=== PATIENT | male | born 1965 | race Caucasian/White ===

== ENCOUNTER 2016-08-27 19:33 | Emergency (ER) | payer OTHER ==
[2016-08-27 19:53] VITALS: BP 129/87; PULSE 64; TEMP 97.9; BMI 24.7
[2016-08-27] MEDS ORDERED: METOCLOPRAMIDE HCL INJECTION 10 MG/2 ML VIAL IVPB ONE (20:00)
[2016-08-27] MEDS ORDERED: SODIUM CHLORIDE 1,000 ML IV STA (20:00)
[2016-08-27] MEDS ORDERED: methylPREDNISolone NA SUCC 125 MG/2 ML VIAL IVPB ONE (20:00)
--- NOTE | 2016-08-27 20:12 | PDOC ---
History of Present Illness - General Chief Complaint: Headache Stated Complaint: HEADACHE Time Seen by Provider: 08/27/16 19:52 History Source: Patient Exam Limitations: No Limitations - History of Present Illness Initial Comments: 08/27/16 20:02 51yo Male patient w/ PmHx: Chronic Back Pain (10/2014) presents to ED c/o Headache x 3 days with pressure. Patient is currently taking Gabapentin, Naproxen, and Flexeril with minimal relief. Patient states he usually gets h/a but this h/a is a little worse. Associated nausea. Denies any other complaints at this time. Timing/Duration: reports: other (3 days) Severity: Yes: moderate Episode Description: See HPI Associated Symptoms: reports: nausea/vomiting. denies: denies symptoms, confusion, fatigue, fever/chills, insomnia, loss of consciousness, muscle spasms , numbness in legs/feet, paresthesia, ringing in ears, seizures, sleepy, slurred speech, tingling in legs/feet, trouble walking, vision changes, weakness , other Past History - Travel Traveled outside of the country in the last 30 days: No Close contact w/someone who was outside of country & ill: No - Past Medical History Allergies/Adverse Reactions: Allergies Allergy/AdvReac Type Severity Reaction Status Date / Time No Known Allergies Allergy Verified 08/27/16 19:41 Home Medications: Ambulatory Orders Cyclobenzaprine HCl 20 mg PO DAILY 08/27/16 Gabapentin [Gralise] 600 mg PO HS 08/27/16 Naproxen Sodium [Naproxen Sodium ER] 500 mg PO BID 08/27/16 Suicide Attempt (Hx): No Other medical history: chronic lower back pain - Immunization History Immunization Up to Date: No - Psycho/Social/Smoking Cessation Hx Anxiety: No Suicidal Ideation: No Smoking Status: No Smoking History: Current every day smoker Number of Cigarettes Smoked Daily: 5 Information on smoking cessation initiated: No Hx Alcohol Use: No Drug/Substance Use Hx: No Substance Use Type: None Neuro Specific PMHX - Complaint Specific PMHX Glaucoma: No Herniated Disk: Yes Laminectomy: No Migraine: No Multiple Sclerosis: No Neuropathy: No TIA: No Review of Systems - Review of Systems Able to Perform ROS?: Yes Is the patient limited Chinese proficient: No Constitutional: No: Chills, Fever HEENTM: No: Blurred Vision, Double Vision Cardiac (ROS): No: Chest Pain, Lightheadedness, Palpitations, Syncope, Chest Tightness ABD/GI: Yes: Nausea. No: Constipated, Diarrhea, Poor Appetite, Poor Fluid Intake, Vomiting : No: Burning, Dysuria, Flank Pain, Hematuria Musculoskeletal: Yes: Back Pain (Chronic) Neurological: Yes: Headache All Other Systems: Reviewed and Negative *Physical Exam - Vital Signs Last Vital Signs Temp Pulse Resp BP Pulse Ox 97.9 F 64 18 129/87 99 08/27/16 19:38 08/27/16 19:38 08/27/16 19:38 08/27/16 19:38 08/27/16 19:38 - Physical Exam General Appearance: Yes: Nourished, Appropriately Dressed, Mild Distress. No: Apparent Distress, Moderate Distress, Severe Distress HEENT: positive: EOMI, SANJAY, Normal ENT Inspection, Normal Voice, Symmetrical, TMs Normal, Pharynx Normal. negative: Pharyngeal Erythema, Tonsillar Exudate, Tonsillar Erythema, Nasal Congestion, Rhinorrhea, TM Bulging, TM Dull, TM Erythema Neck: positive: Trachea midline, Normal Thyroid, Supple, Tender midline (Chronic ). negative: Rigid, Stridor, Lymphadenopathy (R), Lymphadenopathy (L), Tender lateral Respiratory/Chest: positive: Lungs Clear, Normal Breath Sounds. negative: Chest Tender, Respiratory Distress, Accessory Muscle Use, Labored Respiration, Rapid RR, Paradoxal Breathing, Stridor, Wheezing Cardiovascular: positive: Regular Rhythm, Regular Rate. negative: Edema Gastrointestinal/Abdominal: positive: Normal Bowel Sounds, Soft. negative: Distended, Guarding, Rebound, Tenderness, Hernia Musculoskeletal: positive: Normal Inspection. negative: CVA Tenderness, CVA Tenderness (R), CVA Tenderness (L) Extremity: positive: Normal Capillary Refill, Normal Inspection, Normal Range of Motion. negative: Pedal Edema, Swelling, Calf Tenderness, Erythema, Inflammation Integumentary: positive: Normal Color, Dry, Warm Neurologic: negative: boiler installer II-XII NML intact, Fully Oriented, Alert, Normal Mood/ Affect, Normal Response, Motor Strength 5/5 ED Treatment Course - LABORATORY CBC & Chemistry Diagram: 08/27/16 20:30 08/27/16 20:30 *DC/Admit/Observation/Transfer Diagnosis at time of Disposition: Headache Qualifiers: Headache type: tension-type Headache chronicity pattern: acute headache Intractability: not intractable Qualified Code(s): G44.209 - Tension-type headache, unspecified, not intractable - Discharge Dispostion Disposition: HOME Condition at time of disposition: Improved Admit: No - Patient Instructions Printed Discharge Instructions: DI for Headache Additional Instructions: FOLLOW UP WITH DR. GERBER. CALL TO SCHEDULE APPOINTMENT NEEDED. RETURN IF SYMPTOMS WORSEN OR ANY CONCERNS FOR FURTHER EVALUATION. Print Language: UKRAINIAN
[2016-08-27] MEDS ORDERED: METOCLOPRAMIDE HCL INJECTION 10 MG/2 ML VIAL ONE (20:17)
[2016-08-27] MEDS ORDERED: methylPREDNISolone NA SUCC 125 MG/2 ML VIAL ONE (20:18)
--- NOTE | 2016-08-27 20:34 | PDOC ---
*Physical Exam - Vital Signs Last Vital Signs Temp Pulse Resp BP Pulse Ox 97.9 F 64 18 129/87 99 08/27/16 19:38 08/27/16 19:38 08/27/16 19:38 08/27/16 19:38 08/27/16 19:38 ED Treatment Course - LABORATORY CBC & Chemistry Diagram: 08/27/16 20:30 08/27/16 20:30 Medical Decision Making - Medical Decision Making 08/27/16 20:34 agree with care from [facility] *DC/Admit/Observation/Transfer Diagnosis at time of Disposition: Headache - Discharge Dispostion Disposition: HOME Condition at time of disposition: Improved - Referrals Referrals: Venkata Gerber MD [Primary Care Provider] - - Patient Instructions Printed Discharge Instructions: DI for Headache Additional Instructions: FOLLOW UP WITH DR. GERBER. CALL TO SCHEDULE APPOINTMENT NEEDED. RETURN IF SYMPTOMS WORSEN OR ANY CONCERNS FOR FURTHER EVALUATION. Print Language: GERMAN
[2016-08-27 20:42] LABS: EOSINOPHIL 3.8 % (0-4.5); MCH 31.1 pg (25.7-33.7); MCHC 33.3 g/dl (32.0-35.9); MEAN CELL VOLUME 93.1 fl (80-96); MEAN PLT VOLUME 9.3 fl (7.5-11.1); NEUTROPHILS 58.6 % (42.8-82.8); PLATELET COUNT 170 K/MM3 (134-434); RDW 13.6 % (11.9-15.9); WHITE BLOOD COUNT 8.3 K/mm3 (4.0-10.0)
[2016-08-27 21:39] LABS: ALBUMIN 3.7 g/dl (3.4-5.0); ANION GAP 8 (8-16); CALCIUM 9.1 mg/dL (8.5-10.1); CO2 28 mmol/L (21-32); CREATININE 0.9 mg/dL (0.7-1.3); GLUCOSE,RANDOM 78 mg/dL (74-106); SGOT/AST 16 U/L (15-37); SGPT/ALT 21 U/L (12-78)
[2016-08-27 21:40] LABS: ALK PHOS 100 U/L (45-117); BILIRUBIN,TOTAL 0.5 mg/dL (0.2-1.0); TOT PROT 6.5 g/dl (6.4-8.2)
== END 2016-08-27 23:06 | disposition home or self-care (01) ==
LOC: JER 19:33
PROC: 3E0333Z Introduction of Anti-inflammatory into Peripheral Vein, Percutaneous Approach (ICD-10-PCS; principal; 2016-08-27)
PROC: 3E033GC Introduction of Other Therapeutic Substance into Peripheral Vein, Percutaneous Approach (ICD-10-PCS; 2016-08-27)
PROC: 3E033GC Introduction of Other Therapeutic Substance into Peripheral Vein, Percutaneous Approach (ICD-10-PCS; 2016-08-27)
DX: G44.209 Tension-type headache, unspecified, not intractable (principal); M54.5 Low back pain; G89.29 Other chronic pain
CPT/HCPCS: 80053; 85025; 99283-25

== ENCOUNTER 2017-10-16 22:04 | Emergency (ER) | payer OTHER ==
--- NOTE | 2017-10-16 22:22 | PDOC ---
History of Present Illness - General Stated Complaint: HEADACHE Time Seen by Provider: 10/16/17 22:22 History Source: Patient Exam Limitations: No Limitations - History of Present Illness Initial Comments: Pt, with PMH of spinal disc herniation s/p work accident (2014), presents with L -sided headache x3 days. The pt has been more stressed as he is trying to get his insurance coverage changed, and states the pain is associated with nausea and photophobia. The pain is throbbing and constant and runs from the frontal R side of his head to the occiput. He had an accident at work in 2014, and has been on Tylenol and Percocet for pain control; these have not received his headache. He denies fevers/chills, vomiting, vision changes, eye tearing, and diarrhea. 10/16/17 22:57 Past History - Past Medical History Allergies/Adverse Reactions: Allergies Allergy/AdvReac Type Severity Reaction Status Date / Time No Known Allergies Allergy Verified 10/16/17 22:50 Home Medications: Ambulatory Orders Cyclobenzaprine HCl 20 mg PO DAILY 08/27/16 Gabapentin [Gralise] 600 mg PO HS 08/27/16 Naproxen Sodium [Naproxen Sodium ER] 500 mg PO BID 08/27/16 Aspirin/Acetaminophen/Caffeine [Excedrin Migraine Caplet] 1 each PO ASDIR COPD: No - Immunization History Immunization Up to Date: No - Suicide/Smoking/Psychosocial Hx Smoking Status: No Smoking History: Current every day smoker Number of Cigarettes Smoked Daily: 10 'Breaking Loose' booklet given: 12/28/16 Hx Alcohol Use: No Drug/Substance Use Hx: No Substance Use Type: None Review of Systems - Review of Systems Able to Perform ROS?: Yes Is the patient limited Uzbek proficient: No Constitutional: Yes: Weight Stable. No: Chills, Diaphoresis, Fever, Loss of Appetite, Weakness HEENTM: No: Blurred Vision, Recent change in vision, Nose Congestion, Hearing Loss, Throat Swelling, Difficulty Swallowing Respiratory: No: Cough, Orthopnea, Shortness of Breath Cardiac (ROS): No: Chest Pain, Edema, Irregular Heart Rate, Lightheadedness, Palpitations, Syncope, Chest Tightness ABD/GI: Yes: Nausea. No: Abdominal Distended, Constipated, Diarrhea, Difficulty Swallowing, Poor Appetite, Poor Fluid Intake, Vomiting, Abdominal cramping : No: Burning, Dysuria, Frequency, Hematuria, Incontinence, Urgency Musculoskeletal: Yes: Back Pain (chronic, since work accident 2014. No acute changes.), Neck Pain (chronic, since work accident 2014. No acute changes.). No : Joint Pain, Joint Swelling, Muscle Pain, Muscle Weakness Integumentary: No: Bruising, Pruritus, Rash, Sweating Neurological: Yes: Headache, Pre-Existing Deficit (chronic decreased sensation in fingertips of L arm, and toes b/l (since accident 2014)). No: Numbness, Paresthesia, Tingling, Weakness, Unsteady Gait, Ataxia, Dizziness Psychiatric: No: Sleep Pattern Change, Change in Appetite Endocrine: No: Increased Urine, Change in Weight Hematologic/Lymphatic: No: Anemia, Blood Clots, Easy Bleeding All Other Systems: Reviewed and Negative *Physical Exam - Physical Exam General Appearance: Yes: Nourished, Appropriately Dressed. No: Apparent Distress (vitals stable, pt able to lie comfortably in bed. ) HEENT: positive: EOMI, SANJAY, Normal ENT Inspection, Normal Voice, Pharynx Normal , Hearing Grossly Normal. negative: Pale Conjunctivae, Scleral Icterus (R), Scleral Icterus (L), Muffled/Hoarse voice, Pharyngeal Erythema, Tonsillar Exudate, Tonsillar Erythema, Nasal Congestion, Rhinorrhea, Sinus Tenderness, Orbits, Hearing Decreased Neck: positive: Trachea midline, Normal Thyroid, Supple. negative: Tender, Rigid, Carotid bruit, Decreased range of motion, Lymphadenopathy (R), Lymphadenopathy (L), Rigidity Respiratory/Chest: positive: Lungs Clear, Normal Breath Sounds. negative: Chest Tender, Respiratory Distress, Accessory Muscle Use Cardiovascular: positive: Regular Rhythm, Regular Rate, S1, S2. negative: Edema , JVD, Murmur Vascular Pulses: Carotid (R): 4+, Carotid (L): 4+ Gastrointestinal/Abdominal: positive: Normal Bowel Sounds, Flat, Soft. negative : Tender, Organomegaly, Pulsatile Mass, Guarding, Rebound, Tenderness Rectal Exam: positive: deferred Lymphatic: negative: Adenopathy, Tenderness Musculoskeletal: positive: Normal Inspection. negative: CVA Tenderness Extremity: positive: Normal Capillary Refill, Normal Inspection, Normal Range of Motion, Pelvis Stable. negative: Tender Integumentary: positive: Normal Color, Dry, Warm. negative: Cyanotic, Jaundice , Clammy, Diaphoresis, Petechiae, Rash, Ecchymosis Neurologic: positive: Fully Oriented, Alert, Normal Mood/Affect, Normal Response , Motor Strength 5/5, Abnormal Cranial NS (decreased sensation over L forehead ( V1 area)), Numbness (decreased sensation to light touch over b/l dorsal feet and ulnar side of arms b/l -- both chronic for pt.), Finger to Nose (intact. cerebellar testing (heel-navarro) intact). negative: marketing communications manager II-XII NML intact, EOM Palsy, Facial Droop, Confused, Disoriented Medical Decision Making - Medical Decision Making Pt seen at bedside, also will be seen by Dr. De Leon. Pt has had L-sided headache x3 days, with nausea and photophobia. Pt has been more stressed as he is trying to get his insurance coverage changed. He had an accident at work in 2014, and has been on Tylenol and Percocet for pain control; these have not received his headache. No pain with neck flexion/extension. No recent travel or sick contacts , and is afebrile. Vitals stable. PE: decreased sensation to light touch over L forehead (V1) -- Likely migraine. Provided 10 mg IV reglan, 30 mg IV Toradol, and 1 L NS. Will reassess. 10/16/17 22:54 Pt has run out of percocet 3 days ago, and is normally prescribed by Dr. Thompson at [facility] (confirmed with prescription search). Will provide 4 mg IV morphine. Pt received medication and ~500 mL IVF. Will reassess after fluids complete. 10/17/17 00:28 (entered later) Pt stated pain significantly improved post-1L NS and medications. Pt will follow-up with PCP and Dr. Thompson (pain management). Strict return precautions provided with pt understanding. 10/17/17 01:46 *DC/Admit/Observation/Transfer Diagnosis at time of Disposition: Left-sided headache - Discharge Dispostion Disposition: HOME Condition at time of disposition: Improved Decision to Admit order: No - Referrals Referrals: Venkata Benjamin MD [Primary Care Provider] - David Thompson MD [Non Staff, Medical] - - Patient Instructions Printed Discharge Instructions: DI for Migraine Additional Instructions: You were seen in the ER today for headache. You were given fluids and medication (reglan, toradol, and morphine) to help with the pain. Please follow- up with your primary care doctor and your pain management doctor (Dr. Thompson) to discuss your visit and make sure your symptoms have improved. Please return to the ER if you have worsening headache, vision changes, loss of strength or sensation in your extremities, inability to tolerate food or fluids , or any other concerns. - Post Discharge Activity
--- NOTE | 2017-10-16 22:43 | PDOC ---
Attending Attestation - HPI HPI: 10/16/17 22:45 The patient is a 52 year old male, with a significant past medical history of multiple disc herniations s/p trauma in 2015, who presents to the emergency department with shooting pain to his left head with associated nausea and photophobia for 3 days. The patient denies chest pain, shortness of breath, and dizziness. The patient denies fever, chills, vomit, diarrhea and constipation. The patient denies dysuria, frequency, urgency and hematuria. Allergies: NKDA - Physicial Exam PE: 10/16/17 23:47 GENERAL: The patient is in no acute distress. HEAD: Normal with no signs of trauma. EYES: PERRLA, EOMI, sclera anicteric, conjunctiva clear. NECK: Normal range of motion, supple without lymphadenopathy, JVD, or masses. LUNGS: Breath sounds equal, clear to auscultation bilaterally. No wheezes, and no crackles. HEART:Regular rate and rhythm, normal S1 and S2 without murmur, rub or gallop. EXTREMITIES: Normal range of motion, no edema. No clubbing or cyanosis. No erythema, or tenderness. NEUROLOGICAL: Cranial nerves II through XII grossly intact. Normal speech. No focal neurological deficits. MUSCULOSKELETAL: Back non-tender to palpation, no CVA tenderness - Medical Decision Making 10/16/17 22:45 Documentation prepared by Alla Rodrigues, acting as director of graduate medical education for Kirsten De Leon MD <Alla Rodrigues - Last Filed: 10/16/17 23:47> - Resident Resident Name: Pamela Llanos - ED Attending Attestation I have performed the following: I have examined & evaluated the patient, The case was reviewed & discussed with the resident, I agree w/resident's findings & plan, Exceptions are as noted - Medical Decision Making Mr edouard is a 52 yo M with a history of chronic back and neck pain s/p injury at work. He is on chronic opioids, followed by pain management He presents to the ER with a complaint of an exacerbation of his chronic pain As it turns out, he has not taken his percocet for the past 3 days because he ran out iSto[employer] checked and pt was last prescribed a 14 day course of Percocet, almost 1 month ago Pt given Provided 10 mg IV reglan, Morpine, IV Upon re assessment, pt states that his pain has significantly improved. will discharge to home Pt will follow-up with PCP and Dr. Thompson (pain management). <Kirsten De Leon - Last Filed: 10/19/17 11:39>
[2017-10-16] MEDS ORDERED: SODIUM CHLORIDE 1,000 ML IV STA (22:51)
[2017-10-16] MEDS ORDERED: METOCLOPRAMIDE HCL INJECTION 10 MG/2 ML VIAL IVPUSH ONE (22:52)
[2017-10-16] MEDS ORDERED: KETOROLAC TROMETHAMINE 30 MG/1 ML VIAL IVPUSH ONE (22:52)
[2017-10-16 22:54] VITALS: BP 130/89; PULSE 56; TEMP 97.8; BMI 25.0
[2017-10-16] MEDS ORDERED: METOCLOPRAMIDE HCL INJECTION 10 MG/2 ML VIAL ONE (23:05)
[2017-10-16] MEDS ORDERED: KETOROLAC TROMETHAMINE 30 MG/1 ML VIAL ONE (23:05)
[2017-10-16] MEDS ORDERED: morphine CARPU-JECT 4 MG/1 ML DISP.SYRIN IVPUSH ONE (23:11)
[2017-10-16] MEDS ORDERED: morphine SULFATE 4 MG/ML VIAL ONE (23:16)
== END 2017-10-17 01:08 | disposition home or self-care (01) ==
LOC: JER 22:04
PROC: 3E0337Z Introduction of Electrolytic and Water Balance Substance into Peripheral Vein, Percutaneous Approach (ICD-10-PCS; principal; 2017-10-16)
PROC: 3E033NZ Introduction of Analgesics, Hypnotics, Sedatives into Peripheral Vein, Percutaneous Approach (ICD-10-PCS; 2017-10-16)
PROC: 3E0333Z Introduction of Anti-inflammatory into Peripheral Vein, Percutaneous Approach (ICD-10-PCS; 2017-10-16)
PROC: 3E033GC Introduction of Other Therapeutic Substance into Peripheral Vein, Percutaneous Approach (ICD-10-PCS; 2017-10-16)
DX: R51 Headache (principal); Z87.828 Personal history of other (healed) physical injury and trauma
CPT/HCPCS: 99281-25; J7030

== ENCOUNTER 2018-08-31 11:49 | Inpatient (IN) | payer OTHER ==
--- NOTE | 2018-08-31 12:44 | PDOC ---
History of Present Illness - General Chief Complaint: Chest Pain Stated Complaint: CHEST PAIN Time Seen by Provider: 08/31/18 12:18 History Source: Patient Exam Limitations: No Limitations - History of Present Illness Initial Comments: 08/31/18 12:41 53 yo male PMH of 30 pack year hx smoking (quit 2 weeks ago), spinal disc herniation s/p work accident (2014) presents to the ED with 5 days of bilateral limb swelling, 3 hours of sudden onset exertional CP with associated SOB. Pt states while walking around at home today he noted sudden onset CP described as pressure with radiation down the left arm and is intermittent. Exertion makes the pain worse and rest makes it better. Of note, pt saw PCP yesterday (Dr. Benjamin) and told he has high cholesterol, pt also pending results of bilateral US lower ext. Pt denies recent travel, calf tenderness, active SOB, abdominal pain, new back pain, recent illness, F/C/N/V, diaphoresis. Past History - Past Medical History Allergies/Adverse Reactions: Allergies Allergy/AdvReac Type Severity Reaction Status Date / Time No Known Allergies Allergy Verified 08/31/18 11:55 Home Medications: Ambulatory Orders Cyclobenzaprine HCl 20 mg PO DAILY 08/27/16 Gabapentin [Gralise] 600 mg PO HS 08/27/16 Naproxen Sodium [Naproxen Sodium ER] 500 mg PO BID 08/27/16 Aspirin/Acetaminophen/Caffeine [Excedrin Migraine Caplet] 1 each PO ASDIR COPD: No - Immunization History Immunization Up to Date: No - Suicide/Smoking/Psychosocial Hx Smoking Status: No Smoking History: Never smoked Have you smoked in the past 12 months: No Number of Cigarettes Smoked Daily: 10 Information on smoking cessation initiated: No 'Breaking Loose' booklet given: 12/28/16 Hx Alcohol Use: No Drug/Substance Use Hx: No Substance Use Type: None Review of Systems - Review of Systems Constitutional: No: Chills, Fever, Weakness HEENTM: No: Blurred Vision, Double Vision Respiratory: Yes: Shortness of Breath (resolved), SOB with Exertion. No: Wheezing, Productive cough Cardiac (ROS): Yes: Chest Pain (pressure) ABD/GI: No: Constipated, Diarrhea, Nausea, Vomiting, Abdominal cramping : No: Burning, Dysuria, Frequency, Hematuria Musculoskeletal: No: Back Pain Integumentary: No: Change in Color Neurological: No: Numbness, Paresthesia *Physical Exam - Vital Signs Last Vital Signs Temp Pulse Resp BP Pulse Ox 97.6 F 70 17 122/80 97 08/31/18 11:55 08/31/18 11:55 08/31/18 11:55 08/31/18 11:55 08/31/18 11:55 - Physical Exam General Appearance: Yes: Nourished, Appropriately Dressed. No: Apparent Distress HEENT: positive: EOMI Neck: positive: Supple. negative: Carotid bruit Respiratory/Chest: positive: Lungs Clear, Normal Breath Sounds. negative: Rapid RR, Crackles, Rales, Rhonchi, Wheezing Cardiovascular: positive: Regular Rhythm, Regular Rate, S1, S2. negative: Edema , JVD, Murmur Vascular Pulses: Dorsalis-Pedis (R): 4+, Doralis-Pedis (L): 4+ Gastrointestinal/Abdominal: positive: Flat, Soft. negative: Rebound ED Treatment Course - LABORATORY CBC & Chemistry Diagram: 08/31/18 12:36 08/31/18 12:36 - RADIOLOGY Radiology Studies Ordered: Category Date Time Status CHEST X-RAY PORTABLE* [RAD] Stat Radiology 08/31/18 12:37 Ordered Medical Decision Making - Medical Decision Making 08/31/18 15:21 53 yo male PMH of 30 pack year hx smoking (quit 2 weeks ago), spinal disc herniation s/p work accident (2014) presents to the ED with 5 days of bilateral limb swelling, 3 hours of sudden onset exertional CP with associated SOB. Pt states while walking around at home today he noted sudden onset CP described as pressure with radiation down the left arm and is intermittent. Exertion makes the pain worse and rest makes it better. Of note, pt saw PCP yesterday (Dr. Benjamin) and told he has high cholesterol, pt also pending results of bilateral US lower ext. Pt denies recent travel, calf tenderness, active SOB, abdominal pain, new back pain, recent illness, F/C/N/V, diaphoresis. Vitals WNL EKG NSR no ST changes DDX INLT: ACS, PE, PNA, Pneumo, MSK Due to severity of story and risk factors, 325 mg ASA given and likely admission for ACS r/o 1st trop neg, pending second trop Bedside US as per Dr. Perez appears normal Case discussed with Dr. Benjamin, agrees to have pt admitted to tele obs D dimer positive, will CTA chest for PE r/o and Will call PCP Cassidy back with results of CTA and discuss HLD treatment 08/31/18 16:30 DVT study issues with sending images, requesting pt return for rescan however pt had CTA of chest, DVT study non emergent and can do as inpatient if needed Case presented to [facility] pt accepted for admission *DC/Admit/Observation/Transfer Diagnosis at time of Disposition: Chest pain - Discharge Dispostion Condition at time of disposition: Stable Decision to Admit order: Yes - Referrals - Patient Instructions - Post Discharge Activity
[2018-08-31] MEDS ORDERED: ASPIRIN 325 MG TABLET PO ONE (12:46)
[2018-08-31] MEDS ORDERED: ASPIRIN 325 MG ENTERIC COATED TABLET (FP) ONE (13:01)
[2018-08-31 13:09] LABS: EOS % 7.6 % (0-4.5); HEMATOCRIT 43.4 % (35.4-49); HEMOGLOBIN 14.7 GM/dL (11.7-16.9); LYMPH % 24.7 % (8-40); MCH 30.6 pg (25.7-33.7); MCHC 33.8 g/dl (32.0-35.9); MEAN CELL VOLUME 90.4 fl (80-96); MEAN PLT VOLUME 8.2 fl (7.5-11.1); MONO % 10.6 % (3.8-10.2); NEUT % 56.1 % (42.8-82.8); PLATELET COUNT 202 K/MM3 (134-434); RDW 13.4 % (11.9-15.9); WHITE BLOOD COUNT 6.3 K/mm3 (4.0-10.0)
--- NOTE | 2018-08-31 13:20 | PDOC ---
Documentation entered by Adriano Dukes SCRIBE, acting as scribe for Ajith Vargas MD. Ajith Vargas MD: This documentation has been prepared by the Ernst munoz Collisia, SCRIBE, under my direction and personally reviewed by me in its entirety. I confirm that the documentation accurately reflects all work, treatment, procedures, and medical decision making performed by me. Attending Attestation - Resident Resident Name: Kartik Quinteros - ED Attending Attestation I have performed the following: I have examined & evaluated the patient, The case was reviewed & discussed with the resident, I agree w/resident's findings & plan - HPI HPI: 08/31/18 13:15 53-year-old male with relatively healthy just had his routine primary care appointment with Dr. Benjamin including an echo, was diagnosed with mild hypercholesterolemia, also had lower extremity Doppler for 1 week of bilateral ( right greater than left) leg swelling presents now with episode of chest pain this morning. Patient was otherwise in his usual state of good health, after showering this morning developed pretty sudden left chest pressure that radiated to his neck and his arm, associated with some shortness of breath but no palpitations or nausea or near syncope. Severity of the symptoms improved but they are persistent with mild severity at this time, presents for evaluation. At baseline, has no exercise limitations, he is on permanent disability from a low back injury but is otherwise active with activities of daily living. No recent procedures or travel, no family history of DVT or PE, mom had HI in her 40s. - Physicial Exam PE: 08/31/18 13:17 Vital signs are normal Patient is well-appearing and comfortable Heart is regular without murmur Lungs are clear, question slight crackles at the left base One plus edema on the right, trace on the left. No calf tenderness Neurovascular intact distally - Medical Decision Making 08/31/18 13:17 53-year-old male presents with 1 week of right greater than left leg swelling and now sudden onset chest pain this morning, presents here hemodynamically stable with normal EKG. Question PE, rule out ACS, less likely infectious. Labs, urinalysis EKG, chest x-ray obtain outpt doppler results, check ddimer will need admission for trop trending/stress test evaluation 08/31/18 15:49 trop negative, ddimer positive. cta chest ordered, admitted to Dr. Benjamin Heart Score/ECG Review #1 ECG reviewed & interpreted by me at: 11:57 General ECG Interpretation: Sinus Rhythm, Normal Rate (62), Normal Intervals ( qtc 412), No acute ischemic changes
[2018-08-31 13:23] LABS: INR 0.91 (0.83-1.09); PROTHROMBIN TIME (PATIENT) 10.7 SEC (9.7-13.0)
[2018-08-31 13:26] LABS: ACTIVATED PTT 27.6 SECONDS (25.2-36.5)
[2018-08-31 13:37] LABS: ALBUMIN 3.5 g/dl (3.4-5.0); ALK PHOS 105 U/L (45-117); ANION GAP 6 MMOL/L (8-16); BILIRUBIN,TOTAL 0.4 mg/dL (0.2-1); BLOOD UREA NITROGEN 14.4 mg/dL (7-18); CALCIUM 8.7 mg/dL (8.5-10.1); CHLORIDE 108 mmol/L (98-107); CO2 29 mmol/L (21-32); CREATININE 1.1 mg/dL (0.55-1.3); GLUCOSE,RANDOM 94 mg/dL (74-106); N-TERMINAL BNP 52.3 pg/ml (5-125); POTASSIUM 4.3 mmol/L (3.5-5.1); SGOT/AST 42 U/L (15-37); SGPT/ALT 88 U/L (13-61); SODIUM 143 mmol/L (136-145); TOT PROT 6.2 g/dl (6.4-8.2)
--- NOTE | 2018-08-31 14:33 | EKG ---
Test Reason : Blood Pressure : / mmHG Vent. Rate : 062 BPM Atrial Rate : 062 BPM P-R Int : 184 ms QRS Dur : 104 ms QT Int : 406 ms P-R-T Axes : 037 014 019 degrees QTc Int : 412 ms NORMAL SINUS RHYTHM NORMAL ECG WHEN COMPARED WITH ECG OF 14-JAN-2010 14:21, NO SIGNIFICANT CHANGE WAS FOUND Confirmed by Omari Ibrahim ([id number]) on 08/31/2018 2:32:39 PM Referred By: Confirmed By:Omari Ibrahim
--- NOTE | 2018-08-31 16:44 | HP ---
Admitting History and Physical - Primary Care Physician PCP: Venkata Benjamin - Admission Chief Complaint: Chest Pain History of Present Illness: Patient is a 53 y/o male with past medical history spinal disc herniation. Patient presented to ER with complaints of chest pain which began at 9:30 this morning. Chest pain was accompanied with dizziness, occipital headache, left arm numbness, SOB. Patient denies any exertion or injury when chest pain started. He also states that he has been having bilateral lower extremity edema for 5 days. He saw his PCP yesterday and had US done of b/l lower extremity. in ER labs significant for elevated D-Dimer 557, chest CTA done with results pending. Troponin neg x 1. History Source: Patient Limitations to Obtaining History: No Limitations - Smoking History Smoking history: Former smoker Have you smoked in the past 12 months: No Aproximately how many cigarettes per day: 10 - Alcohol/Substance Use Hx Alcohol Use: No - Social History ADL: Independent Home Medications - Allergies Allergies/Adverse Reactions: Allergies Allergy/AdvReac Type Severity Reaction Status Date / Time No Known Allergies Allergy Verified 08/31/18 11:55 - Home Medications Home Medications: Ambulatory Orders Cyclobenzaprine HCl 20 mg PO DAILY 08/27/16 Gabapentin [Gralise] 600 mg PO HS 08/27/16 Naproxen Sodium [Naproxen Sodium ER] 500 mg PO BID 08/27/16 Aspirin/Acetaminophen/Caffeine [Excedrin Migraine Caplet] 1 each PO ASDIR Review of Systems - Review of Systems Constitutional: reports: No Symptoms Eyes: reports: No Symptoms HENT: reports: No Symptoms Neck: reports: No Symptoms Cardiovascular: reports: Chest Pain, Shortness of Breath Respiratory: reports: SOB Gastrointestinal: reports: No Symptoms Genitourinary: reports: No Symptoms Breasts: reports: No Symptoms Reported Musculoskeletal: reports: Back Pain Integumentary: reports: No Symptoms Neurological: reports: Dizziness, Numbness (L arm) Endocrine: reports: No Symptoms Hematology/Lymphatic: reports: No Symptoms Psychiatric: reports: No Symptoms Physical Examination Vital Signs: Vital Signs Temperature 97.6 F 08/31/18 11:55 Pulse Rate 70 08/31/18 11:55 Respiratory Rate 17 08/31/18 11:55 Blood Pressure 122/80 08/31/18 11:55 O2 Sat by Pulse Oximetry (%) 97 08/31/18 11:55 Constitutional: Yes: Well Nourished, No Distress, Calm Eyes: Yes: Conjunctiva Clear HENT: Yes: Atraumatic Neck: Yes: Supple Cardiovascular: Yes: Regular Rate and Rhythm Respiratory: Yes: Regular, CTA Bilaterally Gastrointestinal: Yes: Normal Bowel Sounds, Soft Musculoskeletal: Yes: Muscle Weakness Extremities: Yes: WNL Edema: Yes Edema: LLE: Trace, RLE: 1+ Neurological: Yes: Alert, Oriented Psychiatric: Yes: Alert, Oriented Labs: CBC, BMP 08/31/18 12:36 08/31/18 12:36 Imaging - Results Chest X-ray: Report Reviewed EKG: Report Reviewed Problem List - Problems (1) Elevated d-dimer Assessment/Plan: -D-Dimer 557 -Chest CTA ordered, results pending -B/L lower extremity US Code(s): R79.89 - OTHER SPECIFIED ABNORMAL FINDINGS OF BLOOD CHEMISTRY (2) Chest pain Assessment/Plan: -EKG NSR -trop neg x 1, repeat trop pending -Tele monitoring -Cardiology consult -Aspirin daily -lipid panel ordered Code(s): R07.9 - CHEST PAIN, UNSPECIFIED (3) Dizziness Assessment/Plan: -Head CT scan Code(s): R42 - DIZZINESS AND GIDDINESS Assessment/Plan see problem list dvt ppx
[2018-08-31] MEDS ORDERED: ACETAMINOPHEN 325 MG TABLET (FP) PO ONE (17:58)
[2018-08-31] MEDS ORDERED: ACETAMINOPHEN 325 MG TABLET (FP) ONE (18:47)
[2018-08-31 21:47] VITALS: BMI 29.5
[2018-08-31] MEDS ORDERED: ACETAMINOPHEN 325 MG TABLET (FP) PO PRN (22:02)
[2018-08-31] MEDS: HEPARIN NA (PORCINE) 5,000 UNITS/ML 1ML VIAL SQ SCH (22:19)
[2018-09-01 08:25] LABS: BASO % 0.8 % (0-2.0); EOS % 9.6 % (0-4.5); HEMATOCRIT 42.3 % (35.4-49); HEMOGLOBIN 14.6 GM/dL (11.7-16.9); LYMPH % 26.3 % (8-40); MCHC 34.5 g/dl (32.0-35.9); MEAN CELL VOLUME 89.9 fl (80-96); MEAN PLT VOLUME 8.7 fl (7.5-11.1); MONO % 9.6 % (3.8-10.2); NEUT % 53.7 % (42.8-82.8); PLATELET COUNT 193 K/MM3 (134-434); RBC 4.71 M/mm3 (4.00-5.60); RDW 12.9 % (11.9-15.9); WHITE BLOOD COUNT 6.9 K/mm3 (4.0-10.0)
[2018-09-01 08:49] LABS: ALBUMIN 3.2 g/dl (3.4-5.0); ALK PHOS 84 U/L (45-117); ANION GAP 5 MMOL/L (8-16); BILIRUBIN,TOTAL 0.5 mg/dL (0.2-1); CALCIUM 8.2 mg/dL (8.5-10.1); CHLORIDE 108 mmol/L (98-107); CHOLESTEROL 181 mg/dL (50-200); CO2 29 mmol/L (21-32); GLUCOSE,RANDOM 92 mg/dL (74-106); HDL CHOLESTEROL 41 mg/dL (40-60); MAGNESIUM 2.3 mg/dL (1.8-2.4); POTASSIUM 4.1 mmol/L (3.5-5.1); SGOT/AST 51 U/L (15-37); SGPT/ALT 99 U/L (13-61); SODIUM 142 mmol/L (136-145); TOT PROT 5.6 g/dl (6.4-8.2); TRIGLYCERIDES 170 mg/dL (0-150)
[2018-09-01] MEDS: ASPIRIN COATED 81 MG TABLET.EC PO SCH (09:44)
[2018-09-01] MEDS: PANTOPRAZOLE 40 MG TABLET (FP) PO SCH (09:44)
[2018-09-01] MEDS: HEPARIN NA (PORCINE) 5,000 UNITS/ML 1ML VIAL SQ SCH ×2 (09:45→22:18)
--- NOTE | 2018-09-01 10:38 | PN ---
Progress Note, Physician Chief Complaint: Chest pain History of Present Illness: Echo done in our office on 08/20/18 showed normal LVEF at 60%, grade 1 diastolic dysfxn, mild mitral and tricuspid regurgitation, mildly dilated ascending aorta - Current Medication List Current Medications: Active Medications Acetaminophen (Tylenol -) 650 mg PO Q6H PRN PRN Reason: PAIN LEVEL 1-5 Aspirin (Ecotrin -) 81 mg PO DAILY [facility] Last Admin: 09/01/18 09:44 Dose: 81 mg Heparin Sodium (Porcine) (Heparin -) 5,000 unit SQ BID [facility] Last Admin: 09/01/18 09:45 Dose: 5,000 unit Pantoprazole Sodium (Protonix -) 40 mg PO DAILY [facility] Last Admin: 09/01/18 09:44 Dose: 40 mg - Objective Vital Signs: Vital Signs Temperature 97.4 F L 09/01/18 02:00 Pulse Rate 61 09/01/18 02:00 Respiratory Rate 20 09/01/18 07:00 Blood Pressure 114/77 09/01/18 02:00 O2 Sat by Pulse Oximetry (%) 97 09/01/18 07:00 Constitutional: Yes: Well Nourished, No Distress, Calm Cardiovascular: Yes: Regular Rate and Rhythm Respiratory: Yes: Regular Gastrointestinal: Yes: Normal Bowel Sounds, Soft, Abdomen, Obese Genitourinary: Yes: WNL Musculoskeletal: Yes: WNL Extremities: Yes: WNL Edema: No Peripheral Pulses WNL: Yes Neurological: Yes: Alert, Oriented Psychiatric: Yes: Alert, Oriented Labs: CBC, BMP 09/01/18 06:16 09/01/18 06:16 INR, PTT INR 0.91 (0.83-1.09) 08/31/18 12:36 Problem List - Problems (1) Chest pain Assessment/Plan: -resolved -Cardiology consult -Tele monitor -trops x 3 negative -Stress test on cardiology discretion Code(s): R07.9 - CHEST PAIN, UNSPECIFIED (2) Dizziness Assessment/Plan: -resolved Code(s): R42 - DIZZINESS AND GIDDINESS Assessment/Plan see problem list
--- NOTE | 2018-09-01 13:10 | PN ---
Progress Note (short form) - Note Progress Note: PULMONARY CONSULTATION DICTATED 09/01/18 IMP CHEST PAIN SYNDROME R/O ACS H/O SMOKING QUIT 3 WKS AGO HLD PLAN CARDIOLOGY EVALUATION PFTS OUTPATIENT YEARLY LOW DOSE CHEST CT FOR LUNG CANCER SCREENING DR ROSE Problem List - Problems (1) Dyspnea Code(s): R06.00 - DYSPNEA, UNSPECIFIED (2) Chest pain Code(s): R07.9 - CHEST PAIN, UNSPECIFIED (3) Elevated d-dimer Code(s): R79.89 - OTHER SPECIFIED ABNORMAL FINDINGS OF BLOOD CHEMISTRY
--- NOTE | 2018-09-01 14:29 | CONS ---
DATE OF CONSULTATION: 09/01/2018 PULMONARY CONSULTATION REFERRING PHYSICIAN: Venkata Benjamin MD HISTORY OF PRESENT ILLNESS: The patient is a 53-year-old male with a past medical history of spinal disk herniation status post a work accident, hyperlipidemia, longstanding history of tobacco use approximately 1 pack per day for 30 years, quit 2 weeks ago, admitted to [facility] with complaint of sudden onset of exertional chest pain associated with shortness of breath. Patient describes his chest pain as pressure like radiating to the left arm. He denied any nausea, vomiting or diaphoresis. Also complained of shortness of breath associated with this. Pain lasted approximately 3 hours and resolved suddenly. The patient states that the pain is worse when he exerts himself and improves when resting. Apparently he has also been complaining of a 5-day history of bilateral lower extremity swelling. He underwent a duplex lower extremity which was within normal limits. He apparently saw his PCP the day prior to admission and told he had high cholesterol. PAST MEDICAL HISTORY: Again is hypercholesterolemia, history of spinal disk herniation status post work accident. SOCIAL HISTORY: Born in [facility], moved to the [facility] greater than 30 years ago. No occupational exposures. Positive for a history of tobacco use, 1 pack a day for greater than 30 years, quit 2 weeks ago. REVIEW Of SYSTEMS: No orthopnea, no cough, no hemoptysis. Currently no chest pain. No nausea, no vomiting, no hemoptysis, no abdominal pain. CURRENT MEDICATIONS: Include Tylenol, heparin, Ecotrin and Protonix. PHYSICAL EXAMINATION:General: The patient is a well-developed, well-nourished male, currently awake, alert, in no acute distress. Vital Signs: He is currently afebrile, blood pressure 112/76, respiratory rate is 18, O2 saturation is 97% on room air. HEENT: Normocephalic, atraumatic. Neck: Supple. Heart: Irregular, S1, S2. Chest: A few wheezes noted predominantly on the left side. Abdomen: Soft. Bowel sounds are positive. Extremities: There is trace lower extremity edema. LABORATORIES: D-dimer is 557. Chemistries: BUN is 16, creatinine 1.0, triglycerides are 170, cholesterol 181. WBC is 6.9, hemoglobin 14.6, hematocrit 42.3 with a platelet count of 193,000. Chest CTA: No infiltrates and no effusion. No evidence of pulmonary emboli. CT of the head revealed partially opacified right frontal sinus, left frontal sinus osteoma with opacification of the left frontal sinus, bilateral ethmoid sinus disease, right nasal polyp, no evidence of acute intracranial hemorrhage, edema, or midline shift or mass effect. IMPRESSION: 1. Chest pain syndrome, dyspnea, rule out acute coronary syndrome. 2. History of smoking, quit 3 weeks ago. 3. Hyperlipidemia. 4. Hypercholesterolemia. PLAN: Cardiology evaluation. PFT as an outpatient. Will need yearly low-dose chest CT for lung cancer screening. Thank you. SULTANA ROSE M.D. [id number] MTDD
--- NOTE | 2018-09-01 14:31 | CON.CARD ---
Consult Consult Specialty:: Cardiology Reason for Consultation:: Chest pain - History of Present Illness History of Present Illness: 53 M smoker was admitted with recurrent chest pressure radiating to his arm lasting about 30 min until resolution. He has been CP free since admission and ECG/enzymes are normal. No arrhythmia on telem. - History Source History Provided By: Patient - Alcohol/Substance Use Hx Alcohol Use: No - Smoking History Smoking history: Former smoker Have you smoked in the past 12 months: Yes Aproximately how many cigarettes per day: 20 If you are a former smoker, when did you quit?: 08/16/18 - Social History ADL: Independent Home Medications - Allergies Allergies/Adverse Reactions: Allergies Allergy/AdvReac Type Severity Reaction Status Date / Time No Known Allergies Allergy Verified 08/31/18 11:55 - Home Medications Home Medications: Ambulatory Orders Meloxicam 7.5 mg PO DAILY 08/31/18 Pantoprazole Sodium [Protonix] 40 mg PO DAILY 08/31/18 Review of Systems - Review of Systems Constitutional: reports: No Symptoms Eyes: reports: No Symptoms HENT: reports: No Symptoms Neck: reports: No Symptoms Cardiovascular: reports: Chest Pain Respiratory: reports: No Symptoms Gastrointestinal: reports: No Symptoms Genitourinary: reports: No Symptoms Breasts: reports: No Symptoms Reported Musculoskeletal: reports: No Symptoms Vital Signs: Vital Signs Temperature 97.4 F L 09/01/18 02:00 Pulse Rate 56 L 09/01/18 10:00 Respiratory Rate 18 09/01/18 10:00 Blood Pressure 112/76 09/01/18 10:00 O2 Sat by Pulse Oximetry (%) 97 09/01/18 07:00 Constitutional: Yes: Well Nourished, No Distress Eyes: Yes: Conjunctiva Clear, EOM Intact HENT: Yes: Atraumatic, Normocephalic Neck: Yes: Supple, Trachea Midline Respiratory: Yes: Regular, CTA Bilaterally Gastrointestinal: Yes: Normal Bowel Sounds, Soft Cardiovascular: Yes: Regular Rate and Rhythm JVD: No Carotid Bruit: No PMI: Non-Displaced Heart Sounds: Yes: S1, S2 Murmur: No: Systolic Murmur, Diastolic Murmur Musculoskeletal: Yes: WNL Extremities: Yes: WNL Edema: No - Other Data Labs, Other Data: CBC, BMP 09/01/18 06:16 09/01/18 06:16 INR, PTT INR 0.91 (0.83-1.09) 08/31/18 12:36 Troponin, BNP 08/31/18 09/01/18 19:00 06:16 Troponin I < 0.02 < 0.02 Troponin, BNP 08/31/18 09/01/18 19:00 06:16 Troponin I < 0.02 < 0.[address] T changes. Echo: Report Reviewed (recent Out patient echo was normal.) Problem List - Problems (1) Chest pain Code(s): R07.9 - CHEST PAIN, UNSPECIFIED Assessment/Plan Typical CP. JULIETA negative ECG normal. Exercise nuclear stress test will be scheduled. If negative stress can be DCed.
[2018-09-02] MEDS: HEPARIN NA (PORCINE) 5,000 UNITS/ML 1ML VIAL SQ SCH (09:07)
[2018-09-02] MEDS: ASPIRIN COATED 81 MG TABLET.EC PO SCH (09:07)
[2018-09-02] MEDS: PANTOPRAZOLE 40 MG TABLET (FP) PO SCH (09:07)
--- NOTE | 2018-09-02 11:57 | PN ---
Progress Note, Physician Chief Complaint: Chest pain History of Present Illness: Echo done in our office on 08/20/18 showed normal LVEF at 60%, grade 1 diastolic dysfxn, mild mitral and tricuspid regurgitation, mildly dilated ascending aorta at stress test Seen by cardiology - Current Medication List Current Medications: Active Medications Acetaminophen (Tylenol -) 650 mg PO Q6H PRN PRN Reason: PAIN LEVEL 1-5 Aspirin (Ecotrin -) 81 mg PO DAILY [facility] Last Admin: 09/02/18 09:07 Dose: Not Given Heparin Sodium (Porcine) (Heparin -) 5,000 unit SQ BID [facility] Last Admin: 09/02/18 09:07 Dose: Not Given Pantoprazole Sodium (Protonix -) 40 mg PO DAILY [facility] Last Admin: 09/02/18 09:07 Dose: Not Given - Objective Vital Signs: Vital Signs Temperature 97.7 F 09/02/18 05:00 Pulse Rate 56 L 09/02/18 05:00 Respiratory Rate 20 09/02/18 09:00 Blood Pressure 114/68 09/02/18 05:00 O2 Sat by Pulse Oximetry (%) 97 09/02/18 09:00 Constitutional: Yes: Well Nourished, No Distress, Calm Cardiovascular: Yes: Regular Rate and Rhythm Respiratory: Yes: Regular Gastrointestinal: Yes: WNL, Normal Bowel Sounds, Soft, Abdomen, Obese Genitourinary: Yes: WNL Musculoskeletal: Yes: WNL Extremities: Yes: WNL Edema: No Peripheral Pulses WNL: Yes Neurological: Yes: Alert, Oriented Psychiatric: Yes: Alert, Oriented Labs: CBC, BMP 09/01/18 06:16 09/01/18 06:16 INR, PTT INR 0.91 (0.83-1.09) 08/31/18 12:36 Problem List - Problems (1) Chest pain Assessment/Plan: -resolved -Cardiology consult -Tele monitor -trops x 3 negative -Stress test today-if negative, would discharge home Code(s): R07.9 - CHEST PAIN, UNSPECIFIED (2) Dizziness Assessment/Plan: -resolved Code(s): R42 - DIZZINESS AND GIDDINESS Assessment/Plan see problem list
[2018-09-02] MEDS ORDERED: REGADENOSON 0.4 MG/5 ML PRE-FILLED SYRINGE IVPUSH ONE ×2 (12:46→13:00)
--- NOTE | 2018-09-02 13:25 | PN ---
Progress Note (short form) - Note Progress Note: Feels OK today. No CP or SOB. No acute events overnight. Intake & Output 08/30/18 08/31/18 09/01/18 09/02/18 23:59 23:59 23:59 23:59 Intake Total 10 540 Balance 10 540 Weight 236 lb 3.2 oz 233 lb 233 lb Last Vital Signs Temp Pulse Resp BP Pulse Ox 97.7 F 56 L 20 114/68 97 09/02/18 05:00 09/02/18 05:00 09/02/18 09:00 09/02/18 05:00 09/02/18 09:00 Active Medications Acetaminophen (Tylenol -) 650 mg PO Q6H PRN PRN Reason: PAIN LEVEL 1-5 Aspirin (Ecotrin -) 81 mg PO DAILY [facility] Last Admin: 09/02/18 09:07 Dose: Not Given Heparin Sodium (Porcine) (Heparin -) 5,000 unit SQ BID [facility] Last Admin: 09/02/18 09:07 Dose: Not Given Pantoprazole Sodium (Protonix -) 40 mg PO DAILY [facility] Last Admin: 09/02/18 09:07 Dose: Not Given Constitutional: Yes: Well Nourished, No Distress, Calm Cardiovascular: Yes: Regular Rate and Rhythm Respiratory: Yes: Regular Gastrointestinal: Yes: Normal Bowel Sounds, Soft, Abdomen, Obese Genitourinary: Yes: WNL Musculoskeletal: Yes: WNL Extremities: Yes: WNL Edema: No Peripheral Pulses WNL: Yes Neurological: Yes: Alert, Oriented Psychiatric: Yes: Alert, Oriented Labs: Problem List - Problems (1) Dyspnea Code(s): R06.00 - DYSPNEA, UNSPECIFIED (2) Chest pain Code(s): R07.9 - CHEST PAIN, UNSPECIFIED (3) Elevated d-dimer Code(s): R79.89 - OTHER SPECIFIED ABNORMAL FINDINGS OF BLOOD CHEMISTRY IMP CHEST PAIN SYNDROME R/O ACS H/O SMOKING QUIT 3 WKS AGO HLD PE Ruled out by CTA PLAN CARDIOLOGY WORKUP ONGOING PFTS OUTPATIENT NO SMOKING Dr Tom
--- NOTE | 2018-09-02 15:43 | PN ---
Progress Note, Physician Chief Complaint: No chest pain Tele NSR History of Present Illness: 53 M smoker was admitted with recurrent chest pressure radiating to his arm lasting about 30 min until resolution. He has been CP free since admission and ECG/enzymes are normal. No arrhythmia on telem. - Current Medication List Current Medications: Active Medications Acetaminophen (Tylenol -) 650 mg PO Q6H PRN PRN Reason: PAIN LEVEL 1-5 Aspirin (Ecotrin -) 81 mg PO DAILY [facility] Last Admin: 09/02/18 09:07 Dose: Not Given Heparin Sodium (Porcine) (Heparin -) 5,000 unit SQ BID [facility] Last Admin: 09/02/18 09:07 Dose: Not Given Pantoprazole Sodium (Protonix -) 40 mg PO DAILY [facility] Last Admin: 09/02/18 09:07 Dose: Not Given - Objective Vital Signs: Vital Signs Temperature 97.7 F 09/02/18 05:00 Pulse Rate 56 L 09/02/18 05:00 Respiratory Rate 20 09/02/18 09:00 Blood Pressure 114/68 09/02/18 05:00 O2 Sat by Pulse Oximetry (%) 97 09/02/18 09:00 Constitutional: Yes: Well Nourished, No Distress Eyes: Yes: Conjunctiva Clear HENT: Yes: Atraumatic, Normocephalic Neck: Yes: Trachea Midline Cardiovascular: Yes: Regular Rate and Rhythm Respiratory: Yes: Regular, CTA Bilaterally Gastrointestinal: Yes: Normal Bowel Sounds Labs: CBC, BMP 09/01/18 06:16 09/01/18 06:16 INR, PTT INR 0.91 (0.83-1.09) 08/31/18 12:36 Problem List - Problems (1) Chest pain Code(s): R07.9 - CHEST PAIN, UNSPECIFIED Assessment/Plan No further chest pain No dyspnea Negative stress test. No further cardiac testing is advised. Will see as needed.
[2018-09-02 21:00] VITALS: BP 131/83; PULSE 71; TEMP 98.1
== END 2018-09-02 21:04 | disposition home or self-care (01) | DRG 203 ==
LOC: JER 11:49 → JERBED 13:37 → OBSVTOIN 16:18 → J4W 20:14
PROVIDERS: ADMIT Family Medicine; ATTEND Family Medicine
DX: R07.9 Chest pain, unspecified (principal); E78.5 Hyperlipidemia, unspecified; R60.0 Localized edema; R42 Dizziness and giddiness; R79.89 Other specified abnormal findings of blood chemistry; Z87.891 Personal history of nicotine dependence
CPT/HCPCS: 36415; 70450-TC; 71045-TC-FY; 71275-TC; 78452-TC; 80053; 80061; 82550; 83721; 83735; 83880; 84436; 84443; 84484; 85025; 85379; 85610; 85730; 93005; 93010; 93017; 93970-TC; 99283-25; A9502; G0378; J1644; J2785

== ENCOUNTER 2018-10-27 14:02 | Emergency (ER) | payer OTHER ==
[2018-10-27 14:11] VITALS: BMI 29.9
[2018-10-27] MEDS ORDERED: SODIUM CHLORIDE 1,000 ML IV STA (14:33)
[2018-10-27] MEDS ORDERED: ONDANSETRON 4 MG/2 ML VIAL IVPUSH ONE (14:33)
[2018-10-27] MEDS ORDERED: KETOROLAC TROMETHAMINE 30 MG/1 ML VIAL IVPUSH ONE (14:33)
--- NOTE | 2018-10-27 14:33 | PDOC ---
History of Present Illness - History of Present Illness Initial Comments: Bernard Ochoa is a 53yo man with a PMH of chronic back pain and recent hematuria who presents with acute onset of left flank pain that radiates to the left abdomen. He reports associated vomiting today as well. The pain and nausea/ vomiting started acutely while in the car on the way to a urology appointment, where he was intended to undergo evaluation for hematuria for the past 2-3 weeks. Due to the onset of pain, they came to the ED instead. Mr Ochoa states that he had a previous kidney stone around 2000 and he says that the pain today feels similar to when he had the stone. <Cammie Mina - Last Filed: 10/27/18 16:52> <Josh Neal - Last Filed: 10/27/18 18:20> - General Chief Complaint: Pain, Acute Stated Complaint: FLANK PAIN Time Seen by Provider: 10/27/18 14:24 Past History - Past Medical History COPD: No Hypercholesterolemia: Yes Kidney Stones: Yes - Immunization History Immunization Up to Date: No - Suicide/Smoking/Psychosocial Hx Smoking Status: No Smoking History: Never smoked Have you smoked in the past 12 months: No Number of Cigarettes Smoked Daily: 10 If you are a former smoker, when did you quit?: 08/16/18 'Breaking Loose' booklet given: 12/28/16 Hx Alcohol Use: No Drug/Substance Use Hx: No Substance Use Type: None Hx Substance Use Treatment: No <Cammie Mina - Last Filed: 10/27/18 16:52> <Josh Neal - Last Filed: 10/27/18 18:20> - Past Medical History Allergies/Adverse Reactions: Allergies Allergy/AdvReac Type Severity Reaction Status Date / Time No Known Allergies Allergy Verified 10/27/18 14:11 Home Medications: Ambulatory Orders Meloxicam 7.5 mg PO DAILY 08/31/18 Pantoprazole Sodium [Protonix] 40 mg PO DAILY 08/31/18 Nicoderm Patch - 14 patch TD DAILY 09/01/18 Ibuprofen 600 mg PO Q6H PRN #30 tablet 10/27/18 Review of Systems - Review of Systems Comments:: General: No fevers, no chills, no weight or appetite change, no malaise HEENT: No changes in vision, no changes in hearing, no congestion, no sore throat CV: No chest pain, no palpitations, no LE edema Pulm: No SOB, no cough, no wheezing GI: +Nausea, +vomiting, no change in bowel habits, no melena : See HPI Musc: No back pain, no joint swelling, no recent injury Skin: No rash, no lesions, no erythema Endo: No excessive thirst, no heat/cold intolerance Heme: No unusual bruising or bleeding, no swollen glands Neuro: No syncope, no numbness/tingling, no focal weakness Vasc: No claudication Psych: No recent change in mood, no SI or HI <Cammie Mina - Last Filed: 10/27/18 16:52> *Physical Exam - Vital Signs Last Vital Signs Temp Pulse Resp BP Pulse Ox 97.6 F 154 H 20 136/86 100 10/27/18 14:09 10/27/18 14:09 10/27/18 14:09 10/27/18 14:09 10/27/18 14:09 - Physical Exam Comments: General: Very uncomfortable, moving constantly, no acute distress HEENT: PERRL, EOMI, MMM, voice normal Cards: RRR, no murmur appreciated Pulm: Comfortable on room air, clear to auscultation bilaterally Abd: Soft, nontender, nondistended : + left CVA tenderness Ext: Atraumatic. No LE edema. ROM intact. Moves all extremities. WWP Skin: Normal color, no rashes or lesions Neuro: A&Ox3, CN grossly intact, normal speech, motor/sensory grossly intact and symmetric Psych: Mood appropriate to situation <Cammie Mina - Last Filed: 10/27/18 16:52> - Vital Signs Last Vital Signs Temp Pulse Resp BP Pulse Ox 98.0 F 56 L 18 128/74 98 10/27/18 16:54 10/27/18 16:54 10/27/18 16:54 10/27/18 16:54 10/27/18 16:54 <Josh Neal - Last Filed: 10/27/18 18:20> ED Treatment Course - LABORATORY CBC & Chemistry Diagram: 10/27/18 14:50 10/27/18 14:50 <Cammie Mina - Last Filed: 10/27/18 16:52> - LABORATORY CBC & Chemistry Diagram: 10/27/18 14:50 10/27/18 14:50 - ADDITIONAL ORDERS Additional order review: Laboratory Results 10/27/18 10/27/18 14:50 14:50 Sodium 144 Potassium 4.3 Chloride 110 H Carbon Dioxide 28 Anion Gap 6 L BUN 23.1 H Creatinine 1.6 H Est GFR (CKD-EPI)AfAm 56.57 Est GFR (CKD-EPI)NonAf 48.81 Random Glucose 90 Calcium 9.2 Total Bilirubin 0.4 AST 24 ALT 34 Alkaline Phosphatase 110 Total Protein 6.9 Albumin 3.8 Urine Color Yellow Urine Appearance Cloudy Urine pH 6.0 Ur Specific [place] 1.025 Urine Protein Trace Urine Glucose (UA) Negative Urine Ketones Negative Urine Blood 3+ H Urine Nitrite Negative Urine Bilirubin Negative Urine Urobilinogen 0.2 Ur Leukocyte Esterase Negative Urine WBC (Auto) 0-2 Urine RBC (Auto) >100 U Epithel Cells (Auto) Occ Urine Bacteria (Auto) Occ 10/27/18 14:50 RBC 4.97 MCV 88.5 MCHC 34.8 RDW 13.4 MPV 7.9 Neutrophils % 73.1 D Lymphocytes % 15.0 D Monocytes % 6.4 Eosinophils % 4.7 H Basophils % 0.8 - Medications Given in the ED: ED Medications Discontinued Medications Generic Name Dose Route Start Last Admin Trade Name Freq PRN Reason Stop Dose Admin Sodium Chloride 1,000 mls @ 1,000 mls/hr 10/27/18 14:33 10/27/18 15:08 Normal Saline - IV 10/27/18 15:32 1,000 mls/hr ASDIR STA Administration Ketorolac Tromethamine 30 mg 10/27/18 14:33 10/27/18 15:08 Toradol Injection - IVPUSH 10/27/18 14:34 30 mg ONCE ONE Administration Ondansetron HCl 4 mg 10/27/18 14:33 10/27/18 15:09 Zofran Injection IVPUSH 10/27/18 14:34 4 mg ONCE ONE Administration <Josh Neal - Last Filed: 10/27/18 18:20> Medical Decision Making - Medical Decision Making 10/27/18 14:32 Bernard Ochoa is a 53yo man with a PMH of chronic back pain and recent hematuria who presents with acute onset of severe left flank pain that radiates to the left abdomen. - Most likely kidney stone given acute onset and presentation, but given recent hematuria could be other underlying renal pathology, hydronephrosis, pyelonephrosis - CBC, CMP, UA, UCx, CT renal stone - IVF bolus, toradol, zofran 10/27/18 15:54 - Labs reviewed. Notable for elevated creatinine to 1.6 from 1.0 baseline - UA w/ 3+ blood suggestive of stone - CT completed. Reviewed in ED. Left uretural stone visualized. Radiology report pending - Dispo depending on size of stone and adequate pain control 10/27/18 16:08 - Spoke to Dr Alston regarding results. Feels that as long as pain is controlled he may be discharged home and can follow up in his office tomorrow afternoon - Bedside US currently being completed for evaluation of possible hydro 10/27/18 16:52 - CT read completed. Stone 3x4mm in left ureter with mild hydro noted - Reassessed pt, pain now 10, tolerable - Discussion w/ patient regarding discharge home. Advised regarding home care, follow up, return precautions at length. Patient feels comfortable being discharged home, understands and agrees with the plan. Has already called to reschedule his urology appointment for tomorrow afternoon. Discussed with Dr Neal. Cammie Mina PGY2 <Cammie Mina - Last Filed: 10/27/18 16:52> *DC/Admit/Observation/Transfer <Cammie Mina - Last Filed: 10/27/18 16:52> <Josh Neal - Last Filed: 10/27/18 18:20> Diagnosis at time of Disposition: Nephrolithiasis, Flank pain, Elevated serum creatinine - Discharge Dispostion Disposition: HOME Condition at time of disposition: Stable - Prescriptions Prescriptions: Ibuprofen 600 mg PO Q6H PRN #30 tablet PRN Reason: Pain - Referrals Referrals: Ryder Alston MD [Staff Physician] - - Patient Instructions Printed Discharge Instructions: DI for Kidney Stones Additional Instructions: Discharge Instructions: You were seen in the emergency department for abdominal pain, and you were found to have a kidney stone. You had a CT scan to confirm this, and the stone was found to be 3x4mm in size and located in the left ureter (tube between the kidney and bladder). This indicates that the stone will most likely pass on its own. Home Care: - You may use ibuprofen 600mg every 6 hours as needed for pain; this has been prescribed for you. If you have continued pain, you may alternate this medication with acetaminophen (Tylenol) 650-1000mg. - Make sure you are drinking plenty of fluids to help pass the kidney stone - You have been provided a urine strainer. If you are able to catch the kidney stone when you pass it, bring the stone to your follow up urology appointment. Follow Up: - You have been referred to a urologist for follow up, Dr Alston. You should call to reschedule your missed appointment; he can see you in the office tomorrow afternoon. - Seek immediate medical care if you have worsening of your symptoms, you do not pass the stone within 3-4 days, you stop making urine entirely, you have noticeable blood in your urine, you develop fevers to 101F, or you have any medical emergency.
[2018-10-27] MEDS ORDERED: KETOROLAC TROMETHAMINE 30 MG/1 ML VIAL ONE (14:56)
[2018-10-27] MEDS ORDERED: ONDANSETRON 4 MG/2 ML VIAL ONE (14:56)
[2018-10-27 15:11] LABS: BASO % 0.8 % (0-2.0); EOS % 4.7 % (0-4.5); HEMOGLOBIN 15.3 GM/dL (11.7-16.9); MCH 30.8 pg (25.7-33.7); MCHC 34.8 g/dl (32.0-35.9); MEAN CELL VOLUME 88.5 fl (80-96); MEAN PLT VOLUME 7.9 fl (7.5-11.1); MONO % 6.4 % (3.8-10.2); NEUT % 73.1 % (42.8-82.8); PLATELET COUNT 210 K/MM3 (134-434); RBC 4.97 M/mm3 (4.00-5.60); RDW 13.4 % (11.9-15.9); WHITE BLOOD COUNT 9.7 K/mm3 (4.0-10.0)
[2018-10-27 15:15] LABS: URINE APPEARANCE CLOUDY; URINE BILIRUBIN NEGATIVE (NEGATIVE); URINE COLOR YELLOW; URINE GLUCOSE (UA) NEGATIVE (NEGATIVE); URINE KETONE NEGATIVE (NEGATIVE); URINE LEUK ESTERASE NEGATIVE (NEGATIVE); URINE NITRITE NEGATIVE (NEGATIVE); URINE PROTEIN TRACE (NEGATIVE); URINE UROBILINOGEN 0.2 mg/dL (0.2-1.0)
[2018-10-27 15:45] LABS: ALBUMIN 3.8 g/dl (3.4-5.0); BILIRUBIN,TOTAL 0.4 mg/dL (0.2-1); BLOOD UREA NITROGEN 23.1 mg/dL (7-18); CALCIUM 9.2 mg/dL (8.5-10.1); CREATININE 1.6 mg/dL (0.55-1.3); POTASSIUM 4.3 mmol/L (3.5-5.1); TOT PROT 6.9 g/dl (6.4-8.2)
[2018-10-27 15:47] LABS: EPI CELLS OCC /HPF (0-5/HPF); URINE BACTERIA OCC /hpf (NEGATIVE); URINE RBC >100 /hpf (0-4); URINE WBC 0-2 /hpf (0-5)
[2018-10-27 16:56] VITALS: BP 128/74; TEMP 98
[2018-10-27 17:01] VITALS: PULSE 54
--- NOTE | 2018-10-27 18:19 | PDOC ---
Documentation entered by Osman Moody SCRIBE, acting as scribe for Josh Neal MD. Josh Neal MD: This documentation has been prepared by the Fransisco munoz Daniel, SCRIBE, under my direction and personally reviewed by me in its entirety. I confirm that the documentation accurately reflects all work, treatment, procedures, and medical decision making performed by me. Attending Attestation - Resident Resident Name: Cammie Mina - ED Attending Attestation I have performed the following: I have examined & evaluated the patient, The case was reviewed & discussed with the resident, I agree w/resident's findings & plan, Exceptions are as noted - HPI HPI: 10/27/18 15:08 The patient is a 53 year old male with a past medical history of chronic back pain here today for evaluation of left flank pain. The patient reports that he was on his way to see a urologist for hematuria when he had a sudden onset of left flank pain. He states that he has had a kidney stone in the past and this feels exactly the same. +nausea. He denies fevers, chills, CP, SOB, LE edema, focal weakness/numbness, hematuria, dysuria, frequency. Allergies: NKA - Physicial Exam PE: 10/27/18 15:09 GENERAL: Awake, alert, and fully oriented, appears uncomfortable but in no acute distress EYES: PERRLA, EOMI, sclera anicteric, conjunctiva clear ENT: Oropharynx clear without exudates. Moist mucosa LUNGS: Breath sounds equal, clear to auscultation bilaterally. No wheezes, and no crackles HEART: Regular rate and rhythm, normal S1 and S2, no murmurs, rubs or gallops ABDOMEN: Soft, nontender, normoactive bowel sounds. No guarding, no rebound. No masses. +L CVAT EXTREMITIES: Normal range of motion, no edema. No clubbing or cyanosis. No cords , erythema, or tenderness. 2+ peripheral pulses x4 BACK: No midline spinal tenderness in cervical/thoracic/lumbar region NEUROLOGICAL: Normal speech, cranial nerves intact, equal strength and sensation b/l SKIN: Warm, Dry, normal turgor, no rashes or lesions noted. - Medical Decision Making 10/27/18 18:10 53yo M presents to the ED with sudden onset L sided flank pain, found to have 4x3mm L prox/mid ureteral stone with mild hydro Labs with no white count, UA with no infection Creatinine bumped to 1.5 likely 2/2 obstructing stone Pain well controlled with toradol Case discussed with Dr. Alston (who he was on his way to see today), labs including elevated creatinine discussed. He recommends DC as long as pain is controlled and he will f/u with him tomorrow Plan discussed with pt who is in agreement, will take motrin at home for pain controlled He is clinically stable for DC home I discussed the physical exam findings, ancillary test results and final diagnoses with the patient. I answered all of the patient's questions. The patient was satisfied with the care received and felt comfortable with the discharge plan and treatment plan. The patient will call their primary care physician within 24 hours to arrange follow-up and will return to the Emergency Department with any new, persistent or worsening symptoms.
== END 2018-10-27 17:33 | disposition home or self-care (01) ==
LOC: JER 14:02
PROC: 3E0333Z Introduction of Anti-inflammatory into Peripheral Vein, Percutaneous Approach (ICD-10-PCS; principal; 2018-10-27)
PROC: 3E033GC Introduction of Other Therapeutic Substance into Peripheral Vein, Percutaneous Approach (ICD-10-PCS; 2018-10-27)
DX: N13.2 Hydronephrosis with renal and ureteral calculous obstruction (principal); Z87.442 Personal history of urinary calculi
CPT/HCPCS: 36415; 74176-TC; 80053; 81003; 85025; 87086; 99282-25; J7030

== ENCOUNTER 2018-12-10 00:12 | Emergency (ER) | payer OTHER ==
[2018-12-10 00:36] VITALS: BP 134/84; PULSE 61; TEMP 98.1; BMI 29.9
[2018-12-10] MEDS ORDERED: diphenhydrAMINE HCL 25 MG CAPSULE (FP) PO ONE ×2 (00:38→00:39)
[2018-12-10] MEDS ORDERED: FAMOTIDINE 20 MG TABLET PO ONE (01:24)
[2018-12-10] MEDS ORDERED: predniSONE 20 MG TABLET (UD) PO ONE (01:24)
[2018-12-10] MEDS ORDERED: predniSONE 20 MG TABLET (UD) ONE (01:30)
--- NOTE | 2018-12-10 01:36 | PDOC ---
History of Present Illness - General Chief Complaint: Allergic Reaction Stated Complaint: ALLERGIC REACTION Time Seen by Provider: 12/10/18 00:54 History Source: Patient Exam Limitations: No Limitations - History of Present Illness Initial Comments: 12/10/18 02:51 HPI: 53M PMH COPD, LBP pain presenting with diffuse skin itching that started half an hour after taking home meds. Pt started taking cefdenir 1 day ago and felt some itching w/ the first dose. Took all home meds and 2nd dose of cefdenir 9:30p and felt whole body itchiness half an hour later. Denies lightheadedness, numbness, new tingling (has existing tingling 2/2 cervical rediculopathy), chest pain, sob, wheezing, difficulty breathing, abdominal pain , n/v/d, swelling of mucosal membranes. Past History - Past Medical History Allergies/Adverse Reactions: Allergies Allergy/AdvReac Type Severity Reaction Status Date / Time No Known Allergies Allergy Verified 12/10/18 00:34 Home Medications: Ambulatory Orders Meloxicam 7.5 mg PO DAILY 08/31/18 Pantoprazole Sodium [Protonix] 40 mg PO DAILY 08/31/18 Nicoderm Patch - 14 patch TD DAILY 09/01/18 Ibuprofen 600 mg PO Q6H PRN #30 tablet 10/27/18 COPD: No Hypercholesterolemia: Yes Kidney Stones: Yes - Immunization History Immunization Up to Date: Yes - Psycho Social/Smoking Cessation Hx Smoking Status: No Smoking History: Never smoked Have you smoked in the past 12 months: No Number of Cigarettes Smoked Daily: 10 If you are a former smoker, when did you quit?: 08/16/18 Information on smoking cessation initiated: No 'Breaking Loose' booklet given: 12/28/16 Hx Alcohol Use: No Drug/Substance Use Hx: No Substance Use Type: None Hx Substance Use Treatment: No Review of Systems - Review of Systems Able to Perform ROS?: Yes Comments:: 12/10/18 02:51 ROS: CONSTITUTIONAL: Denies F / C HEENT: Denies headache, lightheadedness, dizziness, changes in vision / hearing , diplopia, blurry vision, swelling of lips, tongue, or throat. RESP: Endorses throat itchiness. Denies SOB, cough, wheezing, difficulty breathing. CARD: Denies chest pain GI: Denies N / V / D, abdominal pain SKIN: Endorses itch NEURO: Denies numbness, tingling (existing tingling 2/2 cervical ridiculopathy) Is the patient limited [place] proficient: No *Physical Exam - Vital Signs Last Vital Signs Temp Pulse Resp BP Pulse Ox 98.1 F 61 20 134/84 98 12/10/18 00:20 12/10/18 00:20 12/10/18 00:20 12/10/18 00:20 12/10/18 00:20 - Physical Exam Comments: 12/10/18 02:51 PE: VS reviewed GEN: Well appearing, NAD, comfortable. AAOx3 HEENT: NC/AT, EOMI, PERRLA. No facial asymmetry. Moist mucous membranes, no swelling of the lips, tongue, uvula, posterior pharynx. Normal voice. Supple neck w/ FROM. CV: S1/S2, RRR, no m/r/g LUNG: CTAB, no wheezes, crackles, rales, rhonchi. GI: soft, ndnt, +BS, no guarding, no rebound. EXTREMITIES: No LE edema. No obvious deformities of all extremities. SKIN: warm, dry, normal turgor. Red streaks on arms, legs, and chest. No hives, vesicles. PSYCH: normal mood and affect NEURO: Moving all extremities well. ED Treatment Course - Medications Given in the ED: ED Medications Discontinued Medications Generic Name Dose Route Start Last Admin Trade Name Freq PRN Reason Stop Dose Admin Diphenhydramine HCl 50 mg 12/10/18 00:39 12/10/18 00:41 Benadryl - PO 12/10/18 00:40 50 mg ONCE ONE Administration Medical Decision Making - Medical Decision Making 12/10/18 01:25 MDM: 53M c/o whole body itch after taking home meds w/ cefdenir being new. - VS stable - Airway open and intact - 1 system involvement - Benadryl, prednisone, and pepcid - observe - likely dc home 12/10/18 02:25 Patient reassessed and doing well; itching has improved, no symptom progression Told to stop taking cefdenir and f/u w/ ENT in the AM Currently on prednisone 60 daily, advised to continue dc home w/ close ENT f/u, return precautions Discharge - Discharge Information Problems reviewed: Yes Clinical Impression/Diagnosis: Allergic reaction Qualifiers: Encounter type: initial encounter Qualified Code(s): T78.40XA - Allergy, unspecified, initial encounter Condition: Stable Disposition: HOME - Admission No - Follow up/Referral Referrals: Venkata Benjamin MD [Primary Care Provider] - - Patient Discharge Instructions Patient Printed Discharge Instructions: DI for Adverse Drug Reaction -- Allergic Additional Instructions: You were seen and treated in the Emergency Department. Call your ENT in the morning regarding your visit to the ED. STOP taking CEFDENIR. Continue the rest of your home medications as prescribed. IMMEDIATELY return to the ED if you experience any of the following: - difficulty breathing, shortness of breath - chest pain - nausea, vomiting, diarrhea, severe abdominal pain - ANYTHING that concerns you - Post Discharge Activity Work/Back to School Note: Back to Work
--- NOTE | 2018-12-10 02:38 | PDOC ---
Attending Attestation - Resident Resident Name: Dax Husain - ED Attending Attestation I have performed the following: I have examined & evaluated the patient, The case was reviewed & discussed with the resident, I agree w/resident's findings & plan, Exceptions are as noted - HPI HPI: 12/10/18 02:36 53M pmh copd, chronic lower back pain here with diffuse itching after taking cefdinir. No sob, cp, swelling, dizziness, palpitations. - Physicial Exam PE: 12/10/18 02:36 Agree with exam as documented by resident - Medical Decision Making 12/10/18 02:36 Consider allergic rxn to abx tx symptomatically, observe, re-assess resolution of symptoms will stop abx, pt will follow up with prescribing physician this morning
== END 2018-12-10 02:34 | disposition home or self-care (01) ==
LOC: JER 00:12
DX: L29.8 Other pruritus (principal); T36.1X5A Adverse effect of cephalosporins and other beta-lactam antibiotics, initial encounter; Y92.038 Other place in apartment as the place of occurrence of the external cause
CPT/HCPCS: 99282-25

== ENCOUNTER 2019-01-18 22:38 | Emergency (ER) | payer OTHER ==
[2019-01-18 23:04] VITALS: BMI 30.9
--- NOTE | 2019-01-19 02:25 | PDOC ---
*Physical Exam - Vital Signs Last Vital Signs Temp Pulse Resp BP Pulse Ox 97.7 F 76 20 124/83 98 01/18/19 23:00 01/18/19 23:00 01/18/19 23:00 01/18/19 23:00 01/18/19 23:00 Medical Decision Making - Medical Decision Making 01/19/19 02:25 Patient seen by the advanced practice provider under my direct supervision. Ancillary testing reviewed as necessary. I agree with plan as outlined by the advanced practice provider. Discharge - Follow up/Referral Referrals: Venkata Benjamin MD [Primary Care Provider] - - Patient Discharge Instructions - Post Discharge Activity
--- NOTE | 2019-01-19 02:33 | PDOC ---
Attending Attestation - Resident Resident Name: Vinh Solomon - ED Attending Attestation I have performed the following: I have examined & evaluated the patient, The case was reviewed & discussed with the resident, I agree w/resident's findings & plan - HPI HPI: 01/24/19 16:12 see resident hpi - Physicial Exam PE: 01/24/19 16:12 see resident exam - Medical Decision Making 01/24/19 16:12 53 yo male with headache CT head pending with possibility of LP pending re eval signed out to day shift
[2019-01-19] MEDS ORDERED: METOCLOPRAMIDE HCL INJECTION 10 MG/2 ML VIAL IVPB ONE (02:37)
[2019-01-19] MEDS ORDERED: SODIUM CHLORIDE 0.9% 1000 ML INFUS.BAG IV ONE (02:37)
[2019-01-19] MEDS ORDERED: ACETAMINOPHEN 1000 MG/100 ML VIAL (NON FORMULARY) IVPB ONE (02:37)
[2019-01-19] MEDS ORDERED: METOCLOPRAMIDE HCL INJECTION 10 MG/2 ML VIAL ONE (02:54)
[2019-01-19] MEDS ORDERED: ACETAMINOPHEN INJECTION 100 ML IVPB ONE (02:54)
[2019-01-19 03:29] LABS: BASO % 1.2 % (0-2.0); EOS % 6.5 % (0-4.5); HEMATOCRIT 42.9 % (35.4-49); HEMOGLOBIN 14.7 GM/dL (11.7-16.9); LYMPH % 30.7 % (8-40); MCH 30.6 pg (25.7-33.7); MCHC 34.3 g/dl (32.0-35.9); MEAN CELL VOLUME 89.2 fl (80-96); MEAN PLT VOLUME 8.5 fl (7.5-11.1); MONO % 8.6 % (3.8-10.2); PLATELET COUNT 190 K/MM3 (134-434); RBC 4.81 M/mm3 (4.00-5.60); RDW 13.3 % (11.9-15.9); WHITE BLOOD COUNT 7.6 K/mm3 (4.0-10.0)
[2019-01-19 03:42] LABS: INR 0.93 (0.83-1.09)
[2019-01-19] MEDS ORDERED: methylPREDNISolone NA SUCC 125 MG/2 ML VIAL IVPUSH ONE (03:48)
--- NOTE | 2019-01-19 03:48 | PDOC ---
History of Present Illness - General Chief Complaint: Headache Stated Complaint: HEADACHE Time Seen by Provider: 01/19/19 02:21 History Source: Patient Exam Limitations: No Limitations - History of Present Illness Initial Comments: 01/19/19 03:44 53M with a PMH of low back pain who presents to the ER with complaints of a headache. The patient states that this headache woke him up 5 days ago out of sleep at 0500. He describes a diffuse headache, radiating down to his neck, without vision changes, new numbness, tingling, or weakness, and improving from first onset. He is unsure if it was maximal intensity at onset. He does admit to nausea which started yesterday and prompted him to come to the ED. Past History - Past Medical History Allergies/Adverse Reactions: Allergies Allergy/AdvReac Type Severity Reaction Status Date / Time No Known Allergies Allergy Verified 01/19/19 06:42 Home Medications: Ambulatory Orders NK [No Known Home Medication] 01/19/19 COPD: No Hypercholesterolemia: Yes Kidney Stones: Yes - Immunization History Immunization Up to Date: Yes - Psycho Social/Smoking Cessation Hx Smoking Status: No Smoking History: Never smoked Have you smoked in the past 12 months: No Number of Cigarettes Smoked Daily: 10 If you are a former smoker, when did you quit?: 08/16/18 'Breaking Loose' booklet given: 12/28/16 Hx Alcohol Use: No Drug/Substance Use Hx: No Substance Use Type: None Hx Substance Use Treatment: No Review of Systems - Review of Systems Able to Perform ROS?: Yes Comments:: 01/19/19 06:08 GENERAL/CONSTITUTIONAL: No fever or chills. No weakness. HEAD, EYES, EARS, NOSE AND THROAT: No change in vision. No ear pain or discharge. No sore throat. CARDIOVASCULAR: No chest pain, palpitations, or lightheadedness. RESPIRATORY: No cough, wheezing, shortness of breath, or hemoptysis. GASTROINTESTINAL: + for nausea. No abdominal pain, vomiting, diarrhea, or constipation. GENITOURINARY: No dysuria, frequency, hematuria, or change in urination. MUSCULOSKELETAL: + for chronic neck and back pain. No joint or muscle swelling or pain. SKIN: No rash or lesions. NEUROLOGIC: + for headache. No numbness, tingling, focal weakness, loss of consciousness, or change in strength/sensation. Is the patient limited Grenadian proficient: No *Physical Exam - Vital Signs Last Vital Signs Temp Pulse Resp BP Pulse Ox 97.7 F 76 20 124/83 98 01/18/19 23:00 01/18/19 23:00 01/18/19 23:00 01/18/19 23:00 01/18/19 23:00 - Physical Exam Comments: 01/19/19 06:17 GENERAL: Well developed, well nourished. Awake and alert. No acute distress. HEENT: Normocephalic, atraumatic. Hearing grossly normal. Moist mucous membranes. PERRLA, EOMI. No conjunctival pallor. Sclera are non-icteric. NECK: Supple. Full ROM. No JVD. CARDIOVASCULAR: Regular rate and rhythm. No murmurs, rubs, or gallops. PULMONARY: No evidence of respiratory distress. Lungs clear to auscultation bilaterally. No wheezing, rales or rhonchi. ABDOMINAL: Soft. Non-tender. Non-distended. No rebound or guarding. GENITOURINARY: No CVA tenderness bilaterally. MUSCULOSKELETAL: Normal range of motion at all joints. No bony deformities or tenderness. EXTREMITIES: No cyanosis. No clubbing. No edema. No calf tenderness or swelling. SKIN: Warm and dry. Normal capillary refill. No rashes. No jaundice. NEUROLOGICAL: Alert, awake, appropriate. Cranial nerves 2-12 intact. No deficits to light touch and temperature in face, upper extremities and lower extremities. 5/5 strength in deltoids, biceps, triceps, quadriceps, hamstrings, and gastrocnemius. Normal speech. PSYCHIATRIC: Cooperative. Good eye contact. Appropriate mood and affect. ED Treatment Course - LABORATORY CBC & Chemistry Diagram: 01/19/19 03:14 01/19/19 03:14 - ADDITIONAL ORDERS Additional order review: Laboratory Results 01/19/19 03:14 PT with INR 11.00 INR 0.93 01/19/19 03:14 RBC 4.81 MCV 89.2 MCHC 34.3 RDW 13.3 MPV 8.5 Neutrophils % 53.0 D Lymphocytes % 30.7 D Monocytes % 8.6 Eosinophils % 6.5 H Basophils % 1.2 - RADIOLOGY Radiology Studies Ordered: Category Date Time Status HEAD CT WITHOUT CONTRAST [CT] Stat CT Scan 11/27/19 02:37 Ordered - Medications Given in the ED: ED Medications Discontinued Medications Generic Name Dose Route Start Last Admin Trade Name Marie PRN Reason Stop Dose Admin Acetaminophen 1,000 mg 01/19/19 02:37 01/19/19 03:18 Ofirmev Injection - IVPB 01/19/19 02:38 1,000 mg ONCE ONE Administration Metoclopramide HCl 10 mg 01/19/19 02:37 01/19/19 03:19 Reglan Injection - IVPB 01/19/19 02:38 10 mg ONCE ONE Administration Sodium Chloride 1,000 ml 01/19/19 02:37 01/19/19 03:18 Normal Saline - IV 01/19/19 02:38 1,000 ml ONCE ONE Administration Medical Decision Making - Medical Decision Making 01/19/19 06:17 53M with a PMH of chronic neck and back pain who presents to the ER with 5 days of improving headache. H/a is concerning for SAH as it was sudden onset and woke pt out of sleep. With new onset nausea, SAH is high on the differential. Tension h/a, migraine, or atypical migraine are also on differential. CBC, CMP WNL. CTH pending. D/w patient regarding possible LP if CTH negative. 01/19/19 07:01 Pt signed out to Dr. Husain for further evaluation. Discharge - Discharge Information Problems reviewed: Yes Clinical Impression/Diagnosis: Headache Qualifiers: Headache type: unspecified Headache chronicity pattern: unspecified pattern Intractability: not intractable Qualified Code(s): R51 - Headache Condition: Stable Disposition: HOME - Follow up/Referral Referrals: Macho Penn MD [Staff Physician] - Venkata Benjamin MD [Primary Care Provider] - - Patient Discharge Instructions Patient Printed Discharge Instructions: DI for Headache Additional Instructions: You were seen in the Emergency Department. A copy of your CT reports were provided to you. Continue your home medications as prescribed. Follow up with your Primary Care Doctor regarding this ED visit in the next 2-3 days. We are referring you to a Neurologist. Please follow up with Dr. Penn in the next 2-3 days regarding this ED visit. You may call the number provided to schedule an appointment. IMMEDIATELY RETURN TO THE NEAREST EMERGENCY DEPARTMENT IF YOU EXPERIENCE ANY OF THE FOLLOWING: - WORSENING OR UNRESOLVING SYMPTOMS - CHANGE IN BEHAVIOR OR LEVEL OF CONSCIOUSNESS; SEIZURES, FAINTING - NUMBNESS, TINGLING, WEAKNESS - ANYTHING THAT CONCERNS YOU - Post Discharge Activity
[2019-01-19 03:54] LABS: ALBUMIN 3.5 g/dl (3.4-5.0); BILIRUBIN,TOTAL 0.2 mg/dL (0.2-1); BLOOD UREA NITROGEN 23.4 mg/dL (7-18); CALCIUM 8.5 mg/dL (8.5-10.1); CREATININE 1.1 mg/dL (0.55-1.3); POTASSIUM 4.1 mmol/L (3.5-5.1); TOT PROT 6.2 g/dl (6.4-8.2)
[2019-01-19] MEDS ORDERED: methylPREDNISolone NA SUCC 125 MG/2 ML VIAL ONE (04:50)
--- NOTE | 2019-01-19 07:37 | PDOC ---
*Physical Exam - Vital Signs Last Vital Signs Temp Pulse Resp BP Pulse Ox 97.2 F L 57 L 18 114/79 96 01/19/19 06:24 01/19/19 06:24 01/19/19 06:24 01/19/19 06:24 01/19/19 06:24 ED Treatment Course - LABORATORY CBC & Chemistry Diagram: 01/19/19 03:14 01/19/19 03:14 - ADDITIONAL ORDERS Additional order review: Laboratory Results 01/19/19 01/19/19 01/19/19 03:14 03:14 03:14 PT with INR 11.00 INR 0.93 Sodium 140 Potassium 4.1 Chloride 109 H Carbon Dioxide 27 Anion Gap 5 L BUN 23.4 H Creatinine 1.1 Est GFR (CKD-EPI)AfAm 88.98 Est GFR (CKD-EPI)NonAf 76.77 Random Glucose 113 H Calcium 8.5 Total Bilirubin 0.2 AST 23 ALT 37 Alkaline Phosphatase 107 Total Protein 6.2 L Albumin 3.5 Blood Type O POSITIVE Antibody Screen Negative 01/19/19 03:14 RBC 4.81 MCV 89.2 MCHC 34.3 RDW 13.3 MPV 8.5 Neutrophils % 53.0 D Lymphocytes % 30.7 D Monocytes % 8.6 Eosinophils % 6.5 H Basophils % 1.2 - Medications Given in the ED: ED Medications Discontinued Medications Generic Name Dose Route Start Last Admin Trade Name Freq PRN Reason Stop Dose Admin Acetaminophen 1,000 mg 01/19/19 02:37 01/19/19 03:18 Ofirmev Injection - IVPB 01/19/19 02:38 1,000 mg ONCE ONE Administration Methylprednisolone Sodium Succinate 125 mg 01/19/19 03:48 01/19/19 05:01 Solu-Medrol - IVPUSH 01/19/19 03:49 125 mg ONCE ONE Administration Metoclopramide HCl 10 mg 01/19/19 02:37 01/19/19 03:19 Reglan Injection - IVPB 01/19/19 02:38 10 mg ONCE ONE Administration Sodium Chloride 1,000 ml 01/19/19 02:37 01/19/19 03:18 Normal Saline - IV 01/19/19 02:38 1,000 ml ONCE ONE Administration Medical Decision Making - Medical Decision Making 01/19/19 07:37 received sign out from PM team - f/u CT head Pt no longer has headache NC/AT, CN II-XII intact, EOMI, PERRLA, FROM of the neck w/o midline ttp. No nuchal rigidity. 5/5 UE LE strength b/l; symmetric sensation 01/19/19 08:23 CT Head and Face IOC: no acute hemorrhage, mass or acute infarct. mucoperiosteal thickening paranasal sinuses. possible chronic sinusitis d/w ED team - obtain CTA 01/19/19 10:39 CTA neg for aneursym (ED attending discussed w/ radiologist reading); f/u report given neg CTH, neg CTA, resolved headache, and normal neuro exam; ED team comfortable with DC home w/ f/u Discharge - Discharge Information Problems reviewed: Yes Clinical Impression/Diagnosis: Headache Qualifiers: Headache type: unspecified Headache chronicity pattern: unspecified pattern Intractability: not intractable Qualified Code(s): R51 - Headache Condition: Stable Disposition: HOME - Admission No - Follow up/Referral Referrals: Venkata Benjamin MD [Primary Care Provider] - Macho Penn MD [Staff Physician] - - Patient Discharge Instructions Patient Printed Discharge Instructions: DI for Headache Additional Instructions: You were seen in the Emergency Department. A copy of your CT reports were provided to you. Continue your home medications as prescribed. Follow up with your Primary Care Doctor regarding this ED visit in the next 2-3 days. We are referring you to a Neurologist. Please follow up with Dr. Penn in the next 2-3 days regarding this ED visit. You may call the number provided to schedule an appointment. IMMEDIATELY RETURN TO THE NEAREST EMERGENCY DEPARTMENT IF YOU EXPERIENCE ANY OF THE FOLLOWING: - WORSENING OR UNRESOLVING SYMPTOMS - CHANGE IN BEHAVIOR OR LEVEL OF CONSCIOUSNESS; SEIZURES, FAINTING - NUMBNESS, TINGLING, WEAKNESS - ANYTHING THAT CONCERNS YOU - Post Discharge Activity
--- NOTE | 2019-01-19 10:47 | EKG ---
Test Reason : Blood Pressure : / mmHG Vent. Rate : 060 BPM Atrial Rate : 060 BPM P-R Int : 188 ms QRS Dur : 104 ms QT Int : 432 ms P-R-T Axes : 046 019 029 degrees QTc Int : 432 ms POOR DATA QUALITY, INTERPRETATION MAY BE ADVERSELY AFFECTED NORMAL SINUS RHYTHM NORMAL ECG WHEN COMPARED WITH ECG OF 31-AUG-2018 11:57, NO SIGNIFICANT CHANGE WAS FOUND Confirmed by CIPRIANO LOPEZ, ORION ([id number]) on 01/19/2019 10:47:10 AM Referred By: Confirmed By:ORION COTA MD
[2019-01-19 11:23] VITALS: BP 124/75; PULSE 82; TEMP 98.1
== END 2019-01-19 11:15 | disposition home or self-care (01) ==
LOC: JER 22:38
PROC: 3E033GC Introduction of Other Therapeutic Substance into Peripheral Vein, Percutaneous Approach (ICD-10-PCS; principal; 2019-01-18)
PROC: 3E0333Z Introduction of Anti-inflammatory into Peripheral Vein, Percutaneous Approach (ICD-10-PCS; 2019-01-18)
PROC: 3E033NZ Introduction of Analgesics, Hypnotics, Sedatives into Peripheral Vein, Percutaneous Approach (ICD-10-PCS; 2019-01-18)
DX: R51 Headache (principal); E78.00 Pure hypercholesterolemia, unspecified; Z87.442 Personal history of urinary calculi
CPT/HCPCS: 36415; 70450-TC; 70486-TC; 70496-TC; 80053; 85025; 85610; 86850; 86900; 86901; 93005; 93010; 99283-25; J0131; J7030

== ENCOUNTER 2021-10-24 01:05 | Emergency (ER) | payer OTHER ==
[2021-10-24] MEDS ORDERED: METOCLOPRAMIDE HCL INJECTION 10 MG/2 ML VIAL IM ONE (02:32)
[2021-10-24] MEDS ORDERED: KETOROLAC TROMETHAMINE 30 MG/1 ML VIAL IM ONE (02:32)
[2021-10-24] MEDS ORDERED: KETOROLAC TROMETHAMINE 30 MG/1 ML VIAL ONE (02:40)
[2021-10-24] MEDS ORDERED: METOCLOPRAMIDE HCL INJECTION 10 MG/2 ML VIAL ONE (02:40)
[2021-10-24] MEDS ORDERED: SODIUM CHLORIDE 0.9% 500 ML INFUS.BAG IV ONE (03:29)
[2021-10-24] MEDS ORDERED: ACETAMINOPHEN 1000 MG/100 ML BAG IVPB ONE (03:29)
[2021-10-24] MEDS ORDERED: ACETAMINOPHEN INJECTION 100 ML IVPB ONE (03:32)
[2021-10-24 04:16] VITALS: BP 133/80; PULSE 76; RESP 20; TEMP 98.3; BMI 29.7
== END 2021-10-24 05:15 | disposition home or self-care (01) ==
LOC: JER 01:05
DX: G44.209 Tension-type headache, unspecified, not intractable (principal); J32.2 Chronic ethmoidal sinusitis
CPT/HCPCS: 70450-TC; 70486-TC; 99285-25

== ENCOUNTER 2021-11-16 20:26 | Emergency (ER) | payer OTHER ==
[2021-11-16 20:43] VITALS: BP 122/82; PULSE 97; RESP 18; TEMP 98.6; BMI 29.5
[2021-11-16] MEDS ORDERED: KETOROLAC TROMETHAMINE 30 MG/1 ML VIAL IM ONE (21:42)
[2021-11-16] MEDS ORDERED: KETOROLAC TROMETHAMINE 15 MG/ML VIAL ONE (22:39)
[2021-11-16] MEDS ORDERED: DEXAMETHASONE SOD PHOSPHATE 10 MG/1 ML VIAL IM ONE (23:18)
[2021-11-16] MEDS ORDERED: PROCHLORPERAZINE INJECTION 10 MG/2 ML VIAL IM ONE (23:19)
[2021-11-16] MEDS ORDERED: PROCHLORPERAZINE INJECTION 10 MG/2 ML VIAL ONE (23:35)
[2021-11-16] MEDS ORDERED: DEXAMETHASONE SOD PHOSPHATE 10 MG/1 ML VIAL ONE (23:35)
== END 2021-11-17 02:02 | disposition home or self-care (01) ==
LOC: JER 20:26
PROC: 3E023GC Introduction of Other Therapeutic Substance into Muscle, Percutaneous Approach (ICD-10-PCS; principal; 2021-11-16)
DX: R51.9 Headache, unspecified (principal); M20.011 Mallet finger of right finger(s)
CPT/HCPCS: 73140-TC-RT-FY; 99284-25; J1100

== ENCOUNTER 2022-01-22 04:09 | Day surgery (SDC) | payer OTHER ==
[2022-01-21 17:33] VITALS: BMI 29.7
[2022-01-22] MEDS ORDERED: DEXMEDETOMIDINE HCL 200 MCG/2 ML IVPB ONE (07:03)
[2022-01-22] MEDS ORDERED: FENTANYL CITRATE/PF 50 MCG/ML VIAL ONE ×3 (07:04→11:01)
[2022-01-22] MEDS ORDERED: KETAMINE HCL 500 MG/10 ML VIAL ONE (07:04)
[2022-01-22] MEDS ORDERED: MIDAZOLAM HCL 2 MG/2 ML SINGLE DOSE VIAL ONE (07:05)
[2022-01-22] MEDS ORDERED: PROPOFOL 80 ML ONE (07:16)
[2022-01-22] MEDS ORDERED: BACITRACIN 15 GM TUBE TOPICAL OINTMENT ONE (07:28)
[2022-01-22] MEDS ORDERED: COCAINE HCL 4% TOPICAL SOLUTION 4 ML BOTTLE TP ONE ×2 (07:34→08:26)
[2022-01-22] MEDS ORDERED: ceFAZolin 2 GRAM PREMIX BAG IVPB ONE (08:11)
[2022-01-22] MEDS ORDERED: PROPOFOL 20 ML ONE (09:46)
[2022-01-22] MEDS ORDERED: oxyCODONE HCL 5 MG TABLET PO PRN (10:10)
[2022-01-22] MEDS ORDERED: ACETAMINOPHEN 325 MG TABLET (FP) PO PRN (10:12)
[2022-01-22] MEDS ORDERED: LACTATED RINGERS SOLUTION 1,000 ML IV SCH (10:15)
[2022-01-22] MEDS ORDERED: ONDANSETRON 4 MG/2 ML VIAL IVPUSH PRN (10:18)
[2022-01-22 14:35] VITALS: BP 138/71; PULSE 81; RESP 15; TEMP 97.9
== END 2022-01-22 12:35 | disposition home or self-care (01) ==
LOC: JASU-SURG 04:09
PROVIDERS: ATTEND Otolaryngology
PROC: 09BV8ZZ Excision of Left Ethmoid Sinus, Via Natural or Artificial Opening Endoscopic (ICD-10-PCS; 2022-01-22)
PROC: 09BU8ZZ Excision of Right Ethmoid Sinus, Via Natural or Artificial Opening Endoscopic (ICD-10-PCS; 2022-01-22)
PROC: 09BK8ZX Excision of Nasal Mucosa and Soft Tissue, Via Natural or Artificial Opening Endoscopic, Diagnostic (ICD-10-PCS; 2022-01-22)
PROC: 8E09XBZ Computer Assisted Procedure of Head and Neck Region (ICD-10-PCS; principal; 2022-01-22 08:00)
DX: J32.4 Chronic pansinusitis (principal); J33.8 Other polyp of sinus
CPT/HCPCS: 88304-TC; 94760

== ENCOUNTER 2022-08-04 04:12 | Day surgery (SDC) | payer OTHER ==
[2022-08-01 15:02] VITALS: BMI 31.2
[2022-08-04] MEDS ORDERED: MIDAZOLAM HCL 2 MG/2 ML SINGLE DOSE VIAL ONE ×2 (13:31→13:38)
[2022-08-04] MEDS ORDERED: ACETAMINOPHEN 325 MG TABLET (FP) ONE (14:57)
[2022-08-04] MEDS ORDERED: ACETAMINOPHEN 325 MG TABLET (FP) PO ONE (15:15)
[2022-08-04 15:34] VITALS: RESP 18
[2022-08-04 16:51] VITALS: PULSE 58
[2022-08-04 16:54] VITALS: BP 120/80; TEMP 97.9
== END 2022-08-04 16:15 | disposition home or self-care (01) ==
LOC: JASU-SURG 04:12
PROVIDERS: ATTEND Urology
PROC: 0TC03ZZ Extirpation of Matter from Right Kidney, Percutaneous Approach (ICD-10-PCS; principal; 2022-08-04 13:00)
DX: N20.0 Calculus of kidney (principal)

== ENCOUNTER 2023-09-11 21:45 | Emergency (ER) | payer OTHER ==
[2023-09-11 21:49] VITALS: BP 153/94; PULSE 67; RESP 18; TEMP 97.6; BMI 29.3
[2023-09-11] MEDS ORDERED: FLUORESCEIN NA 1 EA STRIP ONE (22:18)
[2023-09-11] MEDS ORDERED: TETRACAINE 0.5% OPHTH SOLN 2 ML BOTTLE ONE (22:18)
[2023-09-11] MEDS: TETRACAINE 0.5% HCL 0.6ML DROPPER.BOTTLE OD ONE (22:29)
== END 2023-09-11 22:46 | disposition home or self-care (01) ==
LOC: JERFT 21:45 → JER 21:45 → JERFT 22:46
DX: H57.12 Ocular pain, left eye (principal); R20.2 Paresthesia of skin
CPT/HCPCS: 99283-25

== ENCOUNTER 2023-09-21 21:27 | Emergency (ER) | payer OTHER ==
[2023-09-21 21:39] VITALS: RESP 18; BMI 29.9
[2023-09-21] MEDS: ACETAMINOPHEN 325 MG TABLET (FP) PO ONE (23:38)
[2023-09-21] MEDS: KETOROLAC TROMETHAMINE 30 MG/1 ML VIAL IM ONE (23:38)
[2023-09-21] MEDS ORDERED: ACETAMINOPHEN 325 MG TABLET (FP) ONE (23:40)
[2023-09-21] MEDS ORDERED: KETOROLAC TROMETHAMINE 30 MG/1 ML VIAL ONE (23:41)
[2023-09-22 00:42] VITALS: BP 138/74; PULSE 72; TEMP 98.1
== END 2023-09-22 00:57 | disposition home or self-care (01) ==
LOC: JER 21:27
PROC: 3E0133Z Introduction of Anti-inflammatory into Subcutaneous Tissue, Percutaneous Approach (ICD-10-PCS; principal; 2023-09-21)
DX: R51.9 Headache, unspecified (principal)
CPT/HCPCS: 93005; 93010; 99284-25

== ENCOUNTER 2023-12-15 15:50 | Emergency (ER) | payer OTHER ==
[2023-12-15 16:40] VITALS: BP 141/92; PULSE 68; RESP 18; TEMP 97.3; BMI 28.7
[2023-12-15] MEDS ORDERED: KETOROLAC TROMETHAMINE 15 MG/ML VIAL ONE (17:40)
[2023-12-15] MEDS: KETOROLAC TROMETHAMINE 15 MG/ML VIAL IVPUSH ONE (17:58)
[2023-12-15 18:12] LABS: BASO % 0.5 % (0-2.0); EOS % 2.5 % (0-4.5); HEMATOCRIT 48.3 % (35.4-49); LYMPH % 14.5 % (8-40); MCH 30.1 pg (25.7-33.7); MCHC 33.1 g/dl (32.0-35.9); MEAN CELL VOLUME 91.1 fl (80-96); MEAN PLT VOLUME 8.3 fl (7.5-11.1); MONO % 6.4 % (3.8-10.2); NEUT % 76.1 % (42.8-82.8); PLATELET COUNT 195 10^3/uL (134-434); RDW 13.3 % (11.9-15.9); WHITE BLOOD COUNT 9.3 K/mm3 (4.0-10.0)
[2023-12-15 18:13] LABS: EPI CELLS 1 /uL (0-25.1); HYALINE CASTS 0 /uL (0-3.1); PH,URINE 6.5 (5.0-8.0); URINE APPEARANCE CLEAR; URINE BACTERIA 1 /uL (0-1359); URINE BILIRUBIN NEGATIVE (NEGATIVE); URINE COLOR ORANGE; URINE GLUCOSE (UA) NEGATIVE (NEGATIVE); URINE KETONE NEGATIVE (NEGATIVE); URINE LEUK ESTERASE NEGATIVE (NEGATIVE); URINE NITRITE NEGATIVE (NEGATIVE); URINE PROTEIN TRACE (NEGATIVE); URINE RBC 3109 /uL (0-23.9); URINE WBC 10 /uL (0-25.8)
[2023-12-15 18:44] LABS: CALCIUM 8.7 mg/dL (8.5-10.1)
[2023-12-15 18:45] LABS: ALBUMIN 3.6 g/dl (3.4-5.0); BLOOD UREA NITROGEN 13.4 mg/dL (7-18)
[2023-12-15 18:48] LABS: CREATININE 1.1 mg/dL (0.55-1.3)
[2023-12-15 18:50] LABS: BILIRUBIN,TOTAL 0.3 mg/dL (0.2-1); TOT PROT 6.4 g/dl (6.4-8.2)
== END 2023-12-15 21:20 | disposition home or self-care (01) ==
LOC: JER 15:50
PROC: 3E0333Z Introduction of Anti-inflammatory into Peripheral Vein, Percutaneous Approach (ICD-10-PCS; principal; 2023-12-15)
DX: N20.0 Calculus of kidney (principal); R10.9 Unspecified abdominal pain
CPT/HCPCS: 36415; 74176-TC; 80053; 81003; 82550; 82553; 85025; 87086; 96374; 99284-25

== ENCOUNTER 2023-12-17 21:18 | Emergency (ER) | payer OTHER ==
[2023-12-17 21:25] VITALS: BP 131/91; PULSE 78; RESP 18; TEMP 97.9; BMI 28.7
[2023-12-17 22:27] LABS: BASO % 0.8 % (0-2.0); EOS % 3.2 % (0-4.5); HEMATOCRIT 45.8 % (35.4-49); HEMOGLOBIN 15.5 GM/dL (11.7-16.9); LYMPH % 12.7 % (8-40); MCH 30.7 pg (25.7-33.7); MCHC 33.8 g/dl (32.0-35.9); MEAN CELL VOLUME 90.7 fl (80-96); MONO % 6.9 % (3.8-10.2); NEUT % 76.4 % (42.8-82.8); PLATELET COUNT 183 10^3/uL (134-434); RBC 5.05 M/mm3 (4.00-5.60); RDW 13.4 % (11.9-15.9); WHITE BLOOD COUNT 8.7 K/mm3 (4.0-10.0)
[2023-12-17 22:29] LABS: EPI CELLS 1 /uL (0-25.1); HYALINE CASTS 1 /uL (0-3.1); PH,URINE 5.5 (5.0-8.0); URINE APPEARANCE CLOUDY; URINE BACTERIA 1 /uL (0-1359); URINE BILIRUBIN NEGATIVE (NEGATIVE); URINE COLOR YELLOW; URINE GLUCOSE (UA) NEGATIVE (NEGATIVE); URINE KETONE NEGATIVE (NEGATIVE); URINE LEUK ESTERASE NEGATIVE (NEGATIVE); URINE NITRITE NEGATIVE (NEGATIVE); URINE PROTEIN NEGATIVE (NEGATIVE); URINE WBC 6 /uL (0-25.8)
[2023-12-17] MEDS ORDERED: ACETAMINOPHEN INJECTION 100 ML ONE (22:39)
[2023-12-17 22:41] LABS: INR 0.95 (0.83-1.09); PROTHROMBIN TIME (PATIENT) 10.7 SEC (9.7-13.0)
[2023-12-17] MEDS: SODIUM CHLORIDE 0.9% 500 ML INFUS.BAG IV ONE (22:43)
[2023-12-17] MEDS: ACETAMINOPHEN 1000 MG/100 ML BAG IVPB ONE (22:43)
[2023-12-17 22:51] LABS: CALCIUM 8.8 mg/dL (8.5-10.1)
[2023-12-17 22:52] LABS: ALBUMIN 3.3 g/dl (3.4-5.0); BLOOD UREA NITROGEN 17.4 mg/dL (7-18)
[2023-12-17 22:56] LABS: BILIRUBIN,TOTAL 0.2 mg/dL (0.2-1)
[2023-12-17 22:57] LABS: TOT PROT 6.1 g/dl (6.4-8.2)
[2023-12-17 23:38] LABS: URINE RBC 752.3 /uL (0-23.9)
[2023-12-17 23:41] LABS: URINE CRYSTALS PRESENT /hpf
== END 2023-12-18 00:05 | disposition home or self-care (01) ==
LOC: JER 21:18
PROC: 3E033NZ Introduction of Analgesics, Hypnotics, Sedatives into Peripheral Vein, Percutaneous Approach (ICD-10-PCS; principal; 2023-12-17)
DX: R31.9 Hematuria, unspecified (principal); N50.812 Left testicular pain; R10.32 Left lower quadrant pain
CPT/HCPCS: 36415; 76870-TC; 80053; 81003; 85025; 85610; 85730; 87086; 99284-25; J0131